=== PATIENT | female | born 1930 | race Caucasian/White ===

== ENCOUNTER 2018-10-22 16:18 | Inpatient (IN) | payer OTHER ==
[~2018-10-22] VITALS: Ht 165.1 cm; Wt 63.5 kg
[~2018-10-22 16:18] MED LIST: ALLOPURINOL 10100 M1 PO; ASPIRIN325 PO; ATENOLOL 100MG100 MG PO; ATENOLOL 50MG T50 M1 PO; CAPOTEN 50MG TA50 MG PO; CAPTOPRIL 25 MG25 M1 PO; CIPRO500 MG PO; COLACE100 MG PO; COLCRYS0.6 MG PO; DUONEB 2.5-0.5 M3 ML INH; GLUCOSE GEL38 GM PO; GLUCOSE1 EACH PO; GLYBURIDE 3 MG M3 M1 PO; GLYBURIDE 5 MG T5 M1 PO; HYDRALAZINE 2525 M1 PO; HYDROCHLOROTHIA25 M2 GT; HYDROCHLOROTHIA25 M2 PO; HYDROCODONE-AP1 EAC6 PO; LASIX 20 MG TAB20 MG PO; LISINOPRIL10 MG PO; LISINOPRIL5 MG PO; LOVENOX40 MG/0.4 SQ; MIRALAX17 GM PO; ONDANSETRON HCL4 M2 PO; OXYBUTYNIN 5 MG5 M2 PO; TENORMIN25 M1 PO; XARELTO10 MG PO; ZPAK PO; [UNRECOGNIZED DRUG - OTHER] PO
[2018-10-22 16:33] VITALS: BP 169/79
[2018-10-22 17:30] LABS: ABSOLUTE EOSINOPHILS 0.2 thou/uL (0.0-0.7); ABSOLUTE LYMPHOCYTES 1.1 thou/uL (0.8-5.3); ABSOLUTE MONOCYTES 0.3 thou/uL (0.0-1.2); BASOPHILS 0.4 %; EOSINOPHILS 2.7 %; HEMATOCRIT 32.2 % (37.0-47.0); HEMOGLOBIN 10.6 gm/dL (12.0-15.0); LYMPHOCYTES 19.7 %; MCH 28.3 pg (26.0-34.0); MCV 85.9 fL (80.0-100.0); MONOCYTES 6.1 %; MPV 8.7 fl. (7.2-11.1); NUCLEATED RBCS 0 /100WBC; PLATELET COUNT* 142 thou/uL (150-400); POLYS 71.1 %; RBC 3.74 mil/uL (4.20-5.00); RDW-CV 14.2 % (10.5-14.5); WBC 5.7 thou/uL (4.0-11.0)
[2018-10-22 17:42] LABS: CALCIUM 8.2 mg/dL (8.5-10.1); POTASSIUM 4.4 mmol/L (3.5-5.1)
[2018-10-22 17:47] LABS: ALBUMIN 2.5 g/dL (3.4-5.0); TOTAL BILIRUBIN 0.3 mg/dL (<0.1-1.0); TOTAL PROTEIN 6.8 g/dL (6.4-8.2)
[2018-10-22 17:54] VITALS: BP 169/79
[2018-10-22 18:17] VITALS: BP 175/72
--- NOTE | 2018-10-22 18:52 | NUR ---
PT ADMITTED WITH NONHEALING WOUNDS. PT REMAINED ALERT AND ORIENTED. LUNGS CLEAR. HERAT RATE REGULAR AND S1-S2. PULSES 2+ IN ALL EXTREMITIES. WOUNDS TO LT AND RT ANKLES, PICTURES TAKEN AND WOUNDS DRESSED. CONSULTS CALLED IN ID AND PODIATRY. RT AC IV WITH VANC AND ROCEPHIN ORDER WITH NS AT 70. PT RESTING IN ROOM. PT DENIES ANY NEEDS AT THIS TIME. PT BP ELEVATED, IV HYDRALAZINE GIVEN ORDERED. WILL CONTINUE TO MONITOR.
[2018-10-22] MEDS ORDERED: NORVASC5 MG PO (19:01)
[2018-10-22] MEDS ORDERED: COREG6.25 MG PO (19:01)
[2018-10-22 22:00] VITALS: BP 162/70
[2018-10-23 04:40] LABS: ABSOLUTE EOSINOPHILS 0.1 thou/uL (0.0-0.7); ABSOLUTE LYMPHOCYTES 1.1 thou/uL (0.8-5.3); ABSOLUTE MONOCYTES 0.3 thou/uL (0.0-1.2); ABSOLUTE NEUTROPHILS 2.9 thou/uL (1.6-8.1); BASOPHILS 0.6 %; EOSINOPHILS 3.2 %; HEMATOCRIT 26.8 % (37.0-47.0); HEMOGLOBIN 8.8 gm/dL (12.0-15.0); LYMPHOCYTES 24.3 %; MCH 28.3 pg (26.0-34.0); MCHC 32.9 g/dL (28.0-37.0); MCV 85.9 fL (80.0-100.0); MPV 8.9 fl. (7.2-11.1); NUCLEATED RBCS 0 /100WBC; PLATELET COUNT* 119 thou/uL (150-400); POLYS 64.9 %; RBC 3.12 mil/uL (4.20-5.00); WBC 4.5 thou/uL (4.0-11.0)
[2018-10-23 04:50] LABS: CALCIUM 7.6 mg/dL (8.5-10.1); CREATININE 1.7 mg/dL (0.6-1.3); POTASSIUM 4.1 mmol/L (3.5-5.1)
--- NOTE | 2018-10-23 05:07 | NUR ---
PATIENT SLEPT WELL DURING THIS SHIFT. PT UP WITH STANDBY ASSIST AND USE OF WALKER TO BATHROOM. PT WITH DRESSINGS ON BOTH FEET; DSGS C/D/I. PT WITH FLUIDS AND ANTIBIOTICS INFUSING PER DR ORDER. PT IS ON ROOM AIR. PT DENIES PAIN/NAUSEA. WILL CONTINUE TO MONITOR.
[2018-10-23 07:20] VITALS: BP 161/61
[2018-10-23 16:00] VITALS: BP 144/64
--- NOTE | 2018-10-23 17:16 | NUR ---
PT REMAINED ALERT AND ORIENTED. PT RESTING IN ROOM. PT DRESSING CHANGED TWICE THIS SHIFT. CULTURES SENT TO LAB. PT DENIES ANY NEEDS AT THIS TIME. FALL RISK PRECAUTIONS IN PLACE. HOURLY ROUNDING COMPLETED. WILL CONTINUE TO MONITOR.
[2018-10-23 20:00] VITALS: BP 140/68
[2018-10-24] VITALS: BP 156/52
[2018-10-24 04:50] LABS: ABSOLUTE EOSINOPHILS 0.2 thou/uL (0.0-0.7); ABSOLUTE LYMPHOCYTES 1.2 thou/uL (0.8-5.3); ABSOLUTE MONOCYTES 0.3 thou/uL (0.0-1.2); ABSOLUTE NEUTROPHILS 2.5 thou/uL (1.6-8.1); BASOPHILS 0.5 %; EOSINOPHILS 3.9 %; HEMATOCRIT 26.9 % (37.0-47.0); HEMOGLOBIN 8.8 gm/dL (12.0-15.0); LYMPHOCYTES 28.1 %; MCH 28.3 pg (26.0-34.0); MCHC 32.6 g/dL (28.0-37.0); MCV 86.7 fL (80.0-100.0); MONOCYTES 6.8 %; NUCLEATED RBCS 0 /100WBC; PLATELET COUNT* 132 thou/uL (150-400); POLYS 60.7 %; RDW-CV 14.5 % (10.5-14.5); WBC 4.2 thou/uL (4.0-11.0)
[2018-10-24 05:08] LABS: CALCIUM 7.5 mg/dL (8.5-10.1); CREATININE 1.7 mg/dL (0.6-1.3); POTASSIUM 3.9 mmol/L (3.5-5.1)
[2018-10-24 08:43] VITALS: BP 173/66
--- NOTE | 2018-10-24 11:36 | CON ---
[address] [address] CONSULTATION Name: CAPRICE BERGER Room: [address] IN .R.#: [id number] Admission: 10/22/18 Attend Phys: Tony Blanchard MD Discharge: Date of : 32 Report #: [id number] THIS REPORT FOR: //name// CC: Tony Blanchard [facility] physician/PCP DATE OF SERVICE: 10/23/2018 INFECTIOUS DISEASES CONSULTATION REASON FOR CONSULTATION: I was asked to evaluate concerning bilateral heel wounds. HISTORY OF PRESENT ILLNESS: The patient is an 87-year-old who presents with bilateral foot wounds, right greater than left. She notes that she had poorly fitting slippers that she bought a while ago. She did not notice these slippers to be cutting into her heels, but this is exactly what happened. Her son came over yesterday and found these wounds and brought her into the Emergency Room. No fever, chills or sweats. She has had no pain. She reports no history of diabetes. She does have underlying hypertension and history of congestive heart failure. REVIEW OF SYSTEMS: A 10-point review of system was negative other than what has been described above. ALLERGIES: None known. MEDICATIONS: As noted on her MAR, now having been started on vancomycin and ceftriaxone. PAST MEDICAL HISTORY: Hypertension, anemia, gout, osteoporosis, diabetes, peripheral edema. FAMILY HISTORY: Noncontributory. SOCIAL HISTORY: Nonsmoker, no significant alcohol intake. PHYSICAL EXAMINATION: VITAL SIGNS: She is afebrile and hemodynamically stable. GENERAL: Alert and cooperative, in no acute distress. EYES: Without scleral icterus. MOUTH: Without mucositis. NECK: Supple. LUNGS: Clear. HEART: Regular, without murmur, gallop or rub. ABDOMEN: Soft and nontender with no hepatosplenomegaly [place] [address] CONSULTATION Name: CAPRICE BERGER Room: [address]#: [id number] Admission: 10/22/18 Attend Phys: Tony Blanchard MD Discharge: Date of : 32 Report #: [id number] tenderness. EXTREMITIES: Pulses in both lower extremities were normal throughout. Sensation was diminished in both feet, mostly distally. She had wounds to both heels posteriorly in a line distribution, right greater than left. Mild surrounding erythema. Mild drainage, mostly on the right. Minimal tenderness. LABORATORY STUDIES: X-ray of the heels showed no evidence of osteomyelitis. Hemoglobin 10.6, white count 5.7, platelet count 142,000. Creatinine 2. Blood cultures are negative to date. IMPRESSION: Bilateral heel wounds from pressure injury. I suspect component of peripheral neuropathy here. She has acute kidney disease, anemia, thrombocytopenia in the setting of hypertension and diabetes. RECOMMENDATIONS: We will continue with ceftriaxone. Await wound culture. Continue wound care, offloading. <ELECTRONICALLY SIGNED> By: Augusto Munoz MD 10/24/18 1136 1609 2059Davaibhav Munoz MD /nt
--- NOTE | 2018-10-24 15:09 | 2DMMODE ---
[place] [address] 2 D/M-MODE ECHOCARDIOGRAM Name: CAPRICE BERGER Room: [address] IN [facility].#: [id number] Admission: 10/22/18 Attend Phys: Tony Blanhcard, Discharge: Date of : 32 Date of Service: 10/24/18 1509 Report #: [id number] THIS REPORT FOR: //name// APPROVED REPORT Study performed: 10/24/2018 14:16:34 EXAM: Comprehensive 2D, Doppler, and color-flow Echocardiogram Patient Location: Bedside BSA: 1.70 HR: 70 bpm BP: 173/66 mmHg Other Information Study Quality: Good Indications Murmur 2D Dimensions IVSd: 10.59 (7-11mm) LVOT Diam: 22.44 (18-24mm) LVDd: 58.17 mm PWd: 8.79 (7-11mm) Ascending Ao: 30.34 (22-36mm) LVDs: 39.67 (25-40mm) Aortic Root: 29.94 mm Volumes Left Atrial Volume (Systole) LA ESV Index: 36.40 mL/m2 Aortic Valve AoV Peak Dg.: 1.88 m/s AO Peak Gr.: 14.17 mmHg LVOT Max P.18 mmHg AO Mean Gr.: 8.10 mmHg LVOT Mean P.44 mmHg LVOT Max V: 0.89 m/s AO V2 VTI: 42.60 cm LVOT Mean V: 0.55 m/s FRANCISCO JAVIER (VTI): 1.93 cm2 LVOT V1 VTI: 20.74 cm Mitral Valve E/A Ratio: 1.18 MV Decel. Time: 211.34 ms MV E Max Dg.: 1.16 m/s MV PHT: 61.29 ms MVA (PHT): 3.59 [place]2 [place] [address] 2 D/M-MODE ECHOCARDIOGRAM Name: CAPRICE BERGER Room: [address] IN [facility]#: [id number] Admission: 10/22/18 Attend Phys: Tony Blanchard, Discharge: Date of : 32 Date of Service: 10/24/18 1509 Report #: [id number] TDI E/Lateral E': 14.50 E/Medial E': 14.50 Medial E' Dg.: 0.08 m/s Lateral E' Dg.: 0.08 m/s Pulmonary Valve PV Peak Dg.: 0.91 m/s PV Peak Gr.: 3.30 mmHg Tricuspid Valve RAP Estimate: 20.00 mmHg TR Peak Gr.: 15.49 mmHg RVSP: 35.49 mmHg PA Pressure: 35.49 mmHg Left Ventricle The left ventricle is normal size. There is normal LV segmental wall motion. There is normal left ventricular wall thickness. Left ventricular systolic function is hyperdynamic. LVEF is 65-70%. Right Ventricle The right ventricle is normal size. The right ventricular systolic function is normal. Atria Left atrium is mildly dilated. The right atrium size is normal. Aortic Valve The Aortic valve is sclerotic. No aortic regurgitation is present. No hemodynamically significant valvular aortic stenosis. Mitral Valve There is mitral annular calcification. Trace mitral regurgitation. No evidence of mitral valve stenosis. Tricuspid Valve The tricuspid valve is normal in structure. Trace tricuspid regurgitation. estimated pa pressure 25 mm Hg Pulmonic Valve The pulmonary valve is normal in structure. There is no pulmonic valvular regurgitation. Great Vessels The aortic root is normal in size[place] [address] 2 D/M-MODE ECHOCARDIOGRAM Name: CAPRICE BERGER Room: [address]#: [id number] Admission: 10/22/18 Attend Phys: Tony Blanchard, Discharge: Date of : 32 Date of Service: 10/24/18 1509 Report #: [id number] Pericardium There is no pericardial effusion. <Conclusion> LVEF is 65-70%. Left atrium is mildly dilated. The Aortic valve is sclerotic. <ELECTRONICALLY SIGNED> By: Jesus Lai MD, [facility] 10/24/18 1509 1509 1509 Jesus Lai MD, [facility] /INF
--- NOTE | 2018-10-24 16:00 | NUR ---
PT.SITTING ON SIDE OF BED. DRESSINGS ON VIELKA.LOWER EXT. SHE SAID SHE HAS NO PAIN. HOPING TO GO HOME SOON. TOLD HER IT PROBABLY WOULD NOT BE TODAY. SHE SAID SHE LIVES WITH HER SON,GRANDSON AND HIS . SON WORKS DURING THE DAY. GRANDSON IS USUALLY THERE DURING THE DAY. HIS IS HOMEIN THE EVENINGS WELL PT.'S SON. SHE USES A WALKER. SHE IS INDEPENDENT WITH BATHEING AND DRESSING. SHE SAID SHE HAS TROUBLE WITH THE 3 ENTRY STEPS IN HER HOUSE. THERE IS NO HANDRAIL,SO SON HAS TO GET ON ONE SIDE AND GRANDSON GETS ON THE OTHER TO HELP HER UP THE STAIRS. WAITNG ON PENDING CULTURES AND TO COME SEE HER. CM WILL FOLLOW.
[2018-10-24 16:30] VITALS: BP 131/78
[2018-10-24 17:35] VITALS: BP 169/62
[2018-10-24 20:25] VITALS: BP 170/66
[2018-10-25 04:08] LABS: CREATININE 1.7 mg/dL (0.6-1.3)
[2018-10-25 04:31] LABS: POTASSIUM 4.9 mmol/L (3.5-5.1)
[2018-10-25 04:33] LABS: ABSOLUTE EOSINOPHILS 0.2 thou/uL (0.0-0.7); ABSOLUTE LYMPHOCYTES 1.2 thou/uL (0.8-5.3); ABSOLUTE MONOCYTES 0.3 thou/uL (0.0-1.2); ABSOLUTE NEUTROPHILS 2.7 thou/uL (1.6-8.1); BASOPHILS 0.5 %; EOSINOPHILS 4.2 %; HEMATOCRIT 27.9 % (37.0-47.0); HEMOGLOBIN 9.3 gm/dL (12.0-15.0); LYMPHOCYTES 26.7 %; MCH 28.6 pg (26.0-34.0); MCHC 33.4 g/dL (28.0-37.0); MCV 85.7 fL (80.0-100.0); MONOCYTES 7.3 %; MPV 8.4 fl. (7.2-11.1); NUCLEATED RBCS 0 /100WBC; PLATELET COUNT* 124 thou/uL (150-400); POLYS 61.3 %; RBC 3.25 mil/uL (4.20-5.00); RDW-CV 14.4 % (10.5-14.5); WBC 4.4 thou/uL (4.0-11.0)
--- NOTE | 2018-10-25 05:37 | NUR ---
PT SLEPT WELL OVERNIGHT WITHOUT COMPLAINTS. AOX4, PLEASANT. RAC SL. HS ACCUCHECK 94, NO INSULIN ORDERS, SNACK GIVEN. DRSG CDI TO VIELKA FEET, ELEVATED ON PILLOW. STRESS INCONTINENCE, UP WITH SBA AND WALKER TO VOID. AM LABS DRAWN. HEART MURMUR HEARD. ID AND PODIATRY CONSULTING. ABLE TO USE CALL LITE AND MAKE NEEDS KNOWN. CALL LITE IN EASY REACH AND BED ALARM ON FOR SAFETY.
[2018-10-25 07:50] VITALS: BP 174/56
[2018-10-25] MEDS ORDERED: FOLIC ACID 1 MG1 MG PO (10:11)
[2018-10-25] MEDS ORDERED: KEFLEX500 M2 PO (11:26)
[2018-10-25 11:28] VITALS: BP 174/56
[2018-10-25 14:17] VITALS: BP 174/56
--- NOTE | 2018-10-25 15:14 | NUR ---
SW met with pt to discuss safe dc planning for pt to dc home today with family and HH services to follow. Pt in agreement with plan and preference for [facility] HH; SW faxed referral and dc orders/med list and [facility] accepted referral. Pt son to provide pt ride home.
[2018-10-25 16:46] VITALS: BP 178/69
--- NOTE | 2018-10-25 18:06 | NUR ---
PATIENT DRESSINGS CHANGED TO VIELKA LE'S THIS AM PER ORDERS AND PHOTOS OBTAINED. PATIENT OK TO DISCHARGE HOME. IV DC'D. PO ABX STARTED AND GIVEN ORDERED. BP ELEVATED THIS SHIFT EVEN AFTER SCHED MEDS, DR. WU MADE AWARE BUT NO NEW ORDERS RECEIVED. VERBALIZES UNDERSTANDING OF PAPERWORK AND SCRIPT. WOUND CENTER APPT MADE. PATIENT TAKEN OUT VIA WHEELCHAIR WITH ALL BELONGINGS.
--- NOTE | 2018-11-02 13:29 | CON ---
[address] [address] CONSULTATION Name: CAPRICE BERGER Room: [address] IN [facility]#: [id number] Admission: 10/22/18 Attend Phys: Tony Blanchard MD Discharge: 10/25/18 Date of : 32 Report #: [id number] THIS REPORT FOR: //name// CC: Tony Blanchard [facility] physician/PCP DATE OF SERVICE: 10/23/2018 ADMISSION DIAGNOSIS: Bilateral posterior ankle wounds with cellulitis. HISTORY OF PRESENT ILLNESS: The patient is an 87-year-old female admitted for cellulitis to the posterior ankles with pressure ulcers from tight shoes. She denies history of fevers, chills, nausea or malaise. Over 1 week ago, she wore some tighter fitting house slippers, which caused pressure wounds horizontally over the distal Achilles tendon. She currently denies pain to both lesions. She is on parenteral vancomycin and ceftriaxone without complication. Blood cultures are pending. Ankle radiographs negative for subcutaneous emphysema or osseous abnormality. LABORATORY DATA: WBC 4.5, RBC 3.12, hemoglobin 8.8, hematocrit 26.8, and platelets 119. BUN 22, creatinine 1.7, and glucose 103. PHYSICAL EXAMINATION: There is a transverse full thickness wound to the right posterior tendo Achilles that measures 3.0 x 0.3 x 0.2 cm. There is pink granulation with a thin film of pale slough. No exposed tendon or bone. Localized inflammation with cellulitis. The area is nontender to the touch. She has palpable dorsalis pedis and posterior tibial pulses to both extremities. She has a much smaller lesion to the same region of the left posterior Achilles that measures 1.0 x 0.2 x 0.1 cm with minimal inflammation and no rosemarie cellulitis. IMPRESSION: Pressure ulcerations to posterior tendo Achilles with cellulitis, bilateral. PLAN: Both wounds were cleansed and dried. I applied silver foam ABDs and Kerlix to both. No formal surgical debridement required to the OR; however, I debrided the wound with scissors and forceps to remove subcutaneous tissue and slough from both. Continue offloading, maximize nutrition. <ELECTRONICALLY SIGNED> By: Augusto Fall DPM 11/02/18 1329 0852 [id number] Fall DPM /nt
== END 2018-10-25 18:09 | disposition home health service (06) | DRG 571 ==
LOC: M.ERS 16:18 → M.ORTHSURG 17:08 → M.TBA-ER 17:08 → M.ORTHSURG 17:50
PROVIDERS: Nurse Practitioner Family; ADMIT Internal Medicine
PROC: 0JBQ0ZZ Excision of Right Foot Subcutaneous Tissue and Fascia, Open Approach (ICD-10-PCS; principal; 2018-10-24)
DX: L03.115 Cellulitis of right lower limb (principal); N17.9 Acute kidney failure, unspecified; R65.10 Systemic inflammatory response syndrome (SIRS) of non-infectious origin without acute organ dysfunction; E44.0 Moderate protein-calorie malnutrition; L89.519 Pressure ulcer of right ankle, unspecified stage; L03.116 Cellulitis of left lower limb; E53.8 Deficiency of other specified B group vitamins; N18.9 Chronic kidney disease, unspecified; D69.6 Thrombocytopenia, unspecified; E11.22 Type 2 diabetes mellitus with diabetic chronic kidney disease; I12.9 Hypertensive chronic kidney disease with stage 1 through stage 4 chronic kidney disease, or unspecified chronic kidney disease; L89.529 Pressure ulcer of left ankle, unspecified stage; M81.0 Age-related osteoporosis without current pathological fracture; M1A.9XX0 Chronic gout, unspecified, without tophus (tophi); Z79.84 Long term (current) use of oral hypoglycemic drugs; Z68.22 Body mass index [BMI] 22.0-22.9, adult

== ENCOUNTER → 2018-11-02 | Outpatient (CLI) | payer OTHER ==
[~2018-11-02] MED LIST changes: +COREG6.25 MG PO; +FOLIC ACID 1 MG1 MG PO; +KEFLEX500 M2 PO; +NORVASC5 MG PO
--- NOTE | 2018-11-03 12:11 | CON ---
[address] [address] CONSULTATION Name: CAPRICE BERGER Room: [facility] DEMI ThackerCindyMaximeCindy#: [id number] Admission: 11/02/18 Attend Phys: Augusto Fall DPM Discharge: Date of : 32 Report #: [id number] THIS REPORT FOR: //name// CC: Augusto Paz DATE OF SERVICE: 11/03/2018 INFECTIOUS DISEASE CONSULTATION ATTENDING PHYSICIAN: Augusto Dunn DPM She is here for followup hospitalization. She had bilateral posterior heel ulcerations. Right was worse than the left. It has been complicated by skin and soft tissue infection with cellulitis. She returns today. Generally, she feels without significant pain, is notable and likely has peripheral neuropathy to a great extent that she admits to. On evaluation, the wound appears to be less superficially inflamed on examination by Dr. Fall and on debridement, there is no exposed tendon at this point. It is notable as a transverse oriented wound across the posterior base of the heel. Skin and soft tissue infection associated with right heel wound. At this point, would continue as prescribed, the cephalexin, until complete. We will plan on seeing her back in 2 weeks. Continue wound care as prescribed and to avoid the ill-fitting shoes that triggered this initial episode. <ELECTRONICALLY SIGNED> By: Kev Florez MD 11/03/18 1211 0907 0958Joshraddha Florez MD /marla
== END ==
LOC: M.WC 04:57
DX: E11.621 Type 2 diabetes mellitus with foot ulcer (principal); L89.612 Pressure ulcer of right heel, stage 2; L97.412 Non-pressure chronic ulcer of right heel and midfoot with fat layer exposed; L89.893 Pressure ulcer of other site, stage 3; I11.0 Hypertensive heart disease with heart failure; I50.9 Heart failure, unspecified; Z96.649 Presence of unspecified artificial hip joint

== ENCOUNTER → 2018-11-09 | Outpatient (CLI) | payer OTHER ==
--- NOTE | 2018-11-11 07:44 | CON ---
[address] [address] CONSULTATION Name: CAPRICE BERGER Room: [facility] Ever.#: [id number] Admission: 11/09/18 Attend Phys: Augusto Fall DPM Discharge: Date of : 32 Report #: [id number] THIS REPORT FOR: //name// CC: Augusto Paz DATE OF SERVICE: 11/09/2018 INFECTIOUS DISEASE CONSULTATION FOLLOWUP ATTENDING PHYSICIAN: Augusto Fall DPM HISTORY OF PRESENT ILLNESS: She is here for followup bilateral heel ulcerations, primarily right at this point. There is very little pain associated with them, which is in distinction with her initial presentation. Denies any significant systemic illness. It is notable that she has been walking around barefoot per nurse and had an odor of urine. On evaluation with Dr. Fall, the transverse oriented wounds continue to be jay jay. There is very little inflammation associated with them. He did debride the site. Granulation tissue appears to be reasonably good. There is no exposed tendon. ASSESSMENT AND PLAN: Right posterior heel ulceration complicated by skin and soft tissue infection. At this point, she has got a few remaining cephalexin. She was told to complete that course and that would be the extent of it. We will continue wound care as per Dr. Fall. She was encouraged to wear shoes or otherwise other footwear to protect her feet in general if there is any direct pressure on the site with walking. Continue dressing changes. We will see her back in 2 weeks. <ELECTRONICALLY SIGNED> By: Kev Florez MD 11/11/18 0744 0855 1958Joshraddha Florez MD /nt
--- NOTE | 2018-11-14 15:06 | PATH ---
[address] [address] PATHOLOGY RPT PROCEDURE Name: GREGGJORDONCAPRICE DONAVAN Room: [facility] Mj#: [id number] Admission: 11/09/18 Date of : 32 Discharge: Report #: [id number] Path Case #: [id number] LCA Accession Number: [id number] . 01 Material submitted: . foot - BIOPSY LEFT FOOT. Modifiers: left . 01 Clinician provided ICD-10: D21.2 . 02 Diagnosis: Skin, left foot, shave biopsy: - Blue nevus; involving all biopsy margins. There is no evidence of malignancy within the sections examined. (MED:heraclio; 11/14/2018) MBR 11/14/2018 1122 Local . 02 Electronically signed: . Norma Bradshaw MD, Pathologist NPI- [id number] . 01 Gross description: . The specimen is received in formalin, labeled "Caprice Jeffries, biopsy L foot". Received is a shave biopsy measuring 0.8 x 0.5 x 0.1 cm in greatest dimensions. The epidermal surface displays a well-circumscribed, slightly raised and brown-black lesion measuring 0.8 x 0.5 cm. The surgical margin is inked. The specimen is bisected and entirely submitted in cassette A1. (CAA; 11/10/2018) QA/QA 11/10/2018 0951 Local . 02 Pathologist provided ICD-10: D23.72 . 02 CPT . 165123 Specimen Comment: A courtesy copy of this report has been sent to Specimen Comment: [phone], . Specimen Comment: Report sent to / DR CONWAY Performed at: 01 [facility] [address] [place] [address] [address], [place] [id number] MD Mehul Yarbrough MD Phone: [phone] Performed at: 02 [facility] [address] [id number] MD Norma Bradshaw MD Phone: [phone]
== END ==
LOC: M.WC 04:59
DX: E11.621 Type 2 diabetes mellitus with foot ulcer (principal); L89.612 Pressure ulcer of right heel, stage 2; L97.412 Non-pressure chronic ulcer of right heel and midfoot with fat layer exposed; L89.893 Pressure ulcer of other site, stage 3; L03.115 Cellulitis of right lower limb; L84 Corns and callosities; I11.0 Hypertensive heart disease with heart failure; I50.9 Heart failure, unspecified

== ENCOUNTER → 2018-11-23 | Outpatient (CLI) | payer OTHER | LOC: M.WC 11-16 14:00 | DX: E11.621 Type 2 diabetes mellitus with foot ulcer (principal); L89.612 Pressure ulcer of right heel, stage 2; L97.412 Non-pressure chronic ulcer of right heel and midfoot with fat layer exposed; L03.115 Cellulitis of right lower limb; I11.0 Hypertensive heart disease with heart failure; I50.9 Heart failure, unspecified ==

== ENCOUNTER 2019-01-16 16:44 | Inpatient (IN) | payer OTHER ==
[~2019-01-16] VITALS: Ht 160 cm; Wt 56.7 kg
[~2019-01-16 16:44] MED LIST changes: -FOLIC ACID 1 MG1 MG PO; +FOLIC ACID1 MG PO
[2019-01-16 16:53] VITALS: BP 214/90
[2019-01-16 17:25] LABS: ABSOLUTE BASOPHILS 0.1 thou/uL (0.0-0.2); ABSOLUTE EOSINOPHILS 0.1 thou/uL (0.0-0.7); ABSOLUTE LYMPHOCYTES 1.2 thou/uL (0.8-5.3); ABSOLUTE MONOCYTES 0.4 thou/uL (0.0-1.2); ABSOLUTE NEUTROPHILS 6.7 thou/uL (1.6-8.1); BASOPHILS 1.2 %; EOSINOPHILS 1.7 %; HEMATOCRIT 29.9 % (37.0-47.0); HEMOGLOBIN 10.1 gm/dL (12.0-15.0); LYMPHOCYTES 13.7 %; MCH 28.3 pg (26.0-34.0); MCHC 33.8 g/dL (28.0-37.0); MCV 83.8 fL (80.0-100.0); MPV 8.2 fl. (7.2-11.1); NUCLEATED RBCS 0 /100WBC; PLATELET COUNT* 183 thou/uL (150-400); POLYS 78.4 %; RBC 3.57 mil/uL (4.20-5.00); RDW-CV 15.5 % (10.5-14.5); WBC 8.6 thou/uL (4.0-11.0)
[2019-01-16 17:33] LABS: CALCIUM 7.6 mg/dL (8.5-10.1); CREATININE 1.7 mg/dL (0.6-1.3); POTASSIUM 4.5 mmol/L (3.5-5.1)
[2019-01-16 17:38] LABS: ALBUMIN 1.5 g/dL (3.4-5.0); TOTAL BILIRUBIN 0.2 mg/dL (<0.1-1.0); TOTAL PROTEIN 6.1 g/dL (6.4-8.2)
[2019-01-16 18:10] LABS: URINE BILIRUBIN NEGATIVE (Negative); URINE BLOOD TRACE (Negative); URINE CLARITY CLOUDY; URINE COLOR YELLOW; URINE GLUCOSE-RANDOM NEGATIVE (Negative); URINE KETONES NEGATIVE (Negative); URINE LEUKOCYTES-REFLEX TRACE (Negative); URINE NITRITE-REFLEX NEGATIVE (Negative); URINE PROTEIN 3+ (Negative)
[2019-01-16 18:18] LABS: BACTERIA-REFLEX >30 Many /HPF (None Seen); MUCUS None Seen strn/LPF (None Seen); SQUAMOUS 4-10 Moderate /LPF (0-3)
[2019-01-16 18:19] LABS: HYALINE CASTS 0-3 Few /LPF (None Seen)
[2019-01-16 18:20] LABS: CRYSTALS None Seen /LPF (None Seen); URINE RBC 0-2 Rare /HPF (0-2); WBC CLUMPS Few (None Seen)
[2019-01-16 19:00] LABS: BE -0.8 mmol/L (-2 to +3); PCO2 29.9 mmHg (35.0-45.0); PO2 75.8 mmHg (75.0-100.0); pH 7.483 (7.340-7.450)
[2019-01-16 19:33] VITALS: BP 179/61
[2019-01-17] VITALS: BP 150/74
[2019-01-17 04:00] VITALS: BP 159/79
[2019-01-17 04:14] LABS: CALCIUM 7.4 mg/dL (8.5-10.1); CREATININE 1.5 mg/dL (0.6-1.3); MAGNESIUM 1.7 mg/dL (1.8-2.4); POTASSIUM 3.8 mmol/L (3.5-5.1)
--- NOTE | 2019-01-17 06:42 | NUR ---
RECEIVED REPORT FROM SYSTEMS INTEGRATION ENGINEER ELDA AT 1930. PT ARRIVED TO UNIT AT 1945. NURSING ASSESSMENT COMPLETED. STITCH BURNISHER IN PLACE, TRACING SA 1D WITH PACS/PVCS/ SR 1D PACS. PT AAOX4, ORIENTED TO ROOM AND CALL LIGHT. Q2H REPOSITIONING IN PLACE AND COMPLETED. HIGH FALL PRECAUTIONS IN PLACE. NIH ASSESSMENT COMPLETED. SCORE 2. HOURLY ROUNDING COMPLETED. CALL LIGHT WITHIN REACH.
[2019-01-17 07:40] VITALS: BP 172/60
--- NOTE | 2019-01-17 09:32 | EKG ---
[place] [address] ELECTROCARDIOGRAM REPORT Name: CAPRICE BERGER Room: [address] ADM IN .R.#: [id number] Admission: 01/16/19 Attend Phys: Wicho Olivia MD Discharge: Date of : 32 Report #: [id number] THIS REPORT FOR: //name// [facility] ED Test Date: 2019-01-16 Test Time: 17:24:44 Pat Name: CAPRICE BERGER Department: Room: [facility] Gender: F Dredge Deckhand: : 1930 Requested By: Yehuda Mercedes Order Number: [id number] MD: Hira Azevedo Measurements Intervals Stanton Rate: 81 P: 36 IN: 174 QRS: -8 QRSD: 90 T: 21 QT: 376 QTc: 437 Interpretive Statements Sinus rhythm Atrial premature complexes Inferior infarct, old Anterior infarct, old Compared to ECG 05/28/2016 16:02:17 Atrial premature complex(es) now present Myocardial infarct finding now present Short IN interval no longer present Left ventricular hypertrophy no longer present Electronically Signed On 01-17-2019 9:32:06 APPLIANCE FIXER by Hira Azevedo [email or web address] <ELECTRONICALLY SIGNED> By: Hira Azevedo MD, FACC 01/17/19 0932 1724 1724 Hira Azevedo MD, FACC /EPI
[2019-01-17 11:30] VITALS: BP 185/69
--- NOTE | 2019-01-17 14:03 | NUR ---
CM attempted x2 to assess Pt, will f/u later
--- NOTE | 2019-01-17 14:55 | NUR ---
ASSUMED PT CARE AT 0800, AOX4, UP WITH ASSIST, O2 SAT 90'S RA. TRACING SINUS RHYTHM ON TELE. PT DENIES PAIN. NIH SCORE 2. PT HAD NEUROLOGY CONSULT. PT HAD MRI. VSS, AM ASSESSMENT CHARTED. MEDS GIVEN PER MAR. CALL LIGHT WITHIN REACH, WILL CONTINUE TO MONITOR.
--- NOTE | 2019-01-17 15:07 | NUR ---
Pt is A&O. Resides at home with her son, DIL and grandson. Pt states that she is independent, but family is available if needed. Pt mainly uses a walker for mobility, but also has a cane and wc at home. Pt has a commode. Hx of [facility] HH. Hx of SNF, but does not remember which facility. Pt's goal is to return home at dc, therapies to eval. Following.
[2019-01-17 16:03] VITALS: BP 159/85
[2019-01-17 19:40] VITALS: BP 136/64
[2019-01-18] VITALS (7 sets, daily range): BP systolic 142–181; BP diastolic 58–76
--- NOTE | 2019-01-18 04:47 | NUR ---
PT CARE ASSUMED AT 1930. SAT MAINTAINED IN RA. ALERT AND ORIENTED X4. INCONTINENT OF BOWEL AND BLADDER. CALL LIGHT WITHIN REACH AND BED IN LOW POSITION. DENIES PAIN AND SOB. HOURLY ROUNDING DONE FOR PT SAFETY.
--- NOTE | 2019-01-18 13:52 | NUR ---
Cm discussed dispo with Pt, Pt plans to discuss SNF with her son this evening. Pt stated that if she does go skilled, she would want to go to either [facility] [place] or [facility], [place]. CM to f/u first thing in the morning.
[2019-01-19] VITALS: BP 133/62
[2019-01-19 04:00] VITALS: BP 178/70
[2019-01-19 04:56] LABS: CALCIUM 7.3 mg/dL (8.5-10.1); CREATININE 1.8 mg/dL (0.6-1.3); MAGNESIUM 1.7 mg/dL (1.8-2.4); POTASSIUM 4.2 mmol/L (3.5-5.1)
[2019-01-19 07:00] VITALS: BP 149/78
--- NOTE | 2019-01-19 07:38 | NUR ---
PT CARE ASSUMED AT 1930. SAT MAINTAINED IN RA. ALERT AND ORIENTED X4. CALL LIGHT WITHIN REACH AND BED IN LOW POSITION. DENIES PAIN AND SOB. LFT LEG WEAKNESS PRESENT. INCONTINENT OF BOWEL AND BLADDER. HOURLY ROUNDING DONE FOR PT SAFETY.
--- NOTE | 2019-01-19 07:53 | NUR ---
INITAL ASSESSMENT COMPLETED CHARTED. VSS. TRACING SA WITH PVC'S ON MONITOR. PT C/O LEFT HIP PAIN. PT DENIES CP, SOA, N/V/D. NO OTHER CONCERNS AT THIS TIME. HOURLY ROUNDING AND FALL PRECAUTIONS IN PLACE FOR PT SAFETY. CLWR.
[2019-01-19] MEDS ORDERED: ROBITUSSIN100 MG/53 PO (09:17)
[2019-01-19] MEDS ORDERED: MULTIVITAMINS1 EAC7 PO (09:17)
[2019-01-19] MEDS ORDERED: AZITHROMYCIN 2250 MG PO (09:17)
[2019-01-19] MEDS ORDERED: CEFDINIR300 MG PO (09:17)
[2019-01-19] MEDS ORDERED: VITAMIN D1000 UNI2 PO (09:19)
--- NOTE | 2019-01-19 09:41 | NUR ---
CM spoke with Pt regarding skilled, Pt and son are in agreement and want [facility]. Spoke with Bridgette at [facility], they will have a skilled bed tomorrow. Faxed referral and asked that they initiate insurance auth, if they are able to accept Pt for a plan dc tomorrow.
[2019-01-19 12:02] VITALS: BP 180/66
[2019-01-19 16:05] VITALS: BP 170/79
--- NOTE | 2019-01-19 18:57 | CON ---
[address] [address] CONSULTATION Name: CAPRICE BERGER Room: [address] IN M.R.#: [id number] Admission: 01/16/19 Attend Phys: Wicho Olivia MD Discharge: Date of : 32 Report #: [id number] THIS REPORT FOR: //name// CC: Wicho Paz DATE OF SERVICE: 01/17/2019 HISTORY OF PRESENT ILLNESS: This is an 88-year-old female patient who was seen by me for what she described as weakness on the left side. She said yesterday morning her left leg got weak. She indicates that she lives with her family, but usually she is independent and able to do all her daily activities. She said yesterday her family has to help her because she was weak on the left side. I asked her about the confusion, she does not believe she is confused. It was yesterday. This is a different history than she has provided to other providers. She does not think anything makes it better or worse. This started spontaneously without any trauma. No family member is here to confirm the history, but she indicates it happened yesterday. Again, as I said, the history is different than she provided to other people. REVIEW OF SYSTEMS: Indicates that she said she has some heart issues in the past. She does not know what it was. She has a history of osteoporosis, diabetes, gout, anemia, hypertension as I understand from her. Her GFR is low here. A 14-point review of systems was carried out. She is complaining of this weakness, but is not complaining of any new eye, ENT, cardiac, respiratory, , constitutional, dermatological, hematological, psychiatric, throat, allergic symptom associated with present symptomatology. She does have some nonspecific GI symptoms. PAST MEDICAL HISTORY: Positive for some heart issues. FAMILY HISTORY: Negative for any early age stroke. SOCIAL HISTORY: She indicates she does not drink any alcohol or smoke. PHYSICAL EXAMINATION: VITAL SIGNS: Blood pressure is 172/60, respirations 19, pulse is 62, and temperature is 97.9. NEUROLOGIC: The patient's examination indicates she is alert, responsive. She can tell me the month. She knows what hospital it is. She could not name the president, but she knew who he is. Her speech looks intact. Cranial nerve examination 2-12 looks unremarkable. She is weak in both lower extremities, but much more on the left side as compared to the right side. I do not know what her baseline is. I did the position sense. Sometime [place] [address] CONSULTATION Name: CAPRICE BERGER DONAVAN Room: [address] IN .R.#: [id number] Admission: 01/16/19 Attend Phys: Wicho Olivia MD Discharge: Date of : 32 Report #: [id number] she did not do okay. For reflexes and tone, she did not relax. There does not appear to be any cerebellar sign. There is no papilledema. HEENT: She is moderately built individual who does not have any dysmorphic features of eyes, ears and face. His vision and hearing looks adequate. Pulses are palpable. NECK: She does not have any thyroid mass or meningeal sign. CARDIAC: Appear unremarkable. LUNGS: No respiratory difficulty was noticed. LABORATORY DATA: Indicates a white count of 8.6, GFR of 33. CT scan was reviewed that showed chronic changes, but no acute changes. IMPRESSION: Difficult to form in this patient because the history is not very clear. I think we should exclude the possibility of a stroke on the right side in the anterior cerebral artery distribution or subcortical which can cause weakness on the left side, but she appeared to be weak on both sides and because of that, I will try to exclude a spine pathology. She does have multiple problems including renal problems and had an episode of confusion and memory issues. Because of that, TSH and vitamin B12 was checked and they were unremarkable. We will see how she does with PT, OT today and she already got an aspirin. We will follow this patient along with you. Thank you very much for this referral. <ELECTRONICALLY SIGNED> By: Lewis Galvan MD 01/19/19 1857 0817 0856Lewis Galvan MD /nt
[2019-01-19 20:00] VITALS: BP 147/88
[2019-01-20] VITALS: BP 166/73
[2019-01-20 04:00] VITALS: BP 187/85
[2019-01-20 08:00] VITALS: BP 173/71
[2019-01-20] MEDS ORDERED: TRAMADOL 50 MG50 MG PO (10:40)
[2019-01-20 11:40] VITALS: BP 178/58
[2019-01-20 15:18] VITALS: BP 178/58
== END 2019-01-20 18:00 | DRG 193 ==
LOC: M.ERS 16:44 → M.2W 18:13 → M.TBA-ER 18:13 → M.2W 19:34
PROVIDERS: Emergency Medicine Emergency Medical Services; ADMIT Internal Medicine
DX: J18.9 Pneumonia, unspecified organism (principal); G92 Toxic encephalopathy; E43 Unspecified severe protein-calorie malnutrition; N18.4 Chronic kidney disease, stage 4 (severe); M48.56XA Collapsed vertebra, not elsewhere classified, lumbar region, initial encounter for fracture; N30.91 Cystitis, unspecified with hematuria; M10.9 Gout, unspecified; M81.0 Age-related osteoporosis without current pathological fracture; E11.22 Type 2 diabetes mellitus with diabetic chronic kidney disease; I16.0 Hypertensive urgency; I12.9 Hypertensive chronic kidney disease with stage 1 through stage 4 chronic kidney disease, or unspecified chronic kidney disease; F03.90 Unspecified dementia, unspecified severity, without behavioral disturbance, psychotic disturbance, mood disturbance, and anxiety; T38.0X5A Adverse effect of glucocorticoids and synthetic analogues, initial encounter; E11.65 Type 2 diabetes mellitus with hyperglycemia; M35.9 Systemic involvement of connective tissue, unspecified; B96.20 Unspecified Escherichia coli [E. coli] as the cause of diseases classified elsewhere; Z79.82 Long term (current) use of aspirin; Z79.899 Other long term (current) drug therapy; Y92.89 Other specified places as the place of occurrence of the external cause

== ENCOUNTER 2019-09-07 17:37 | Inpatient (IN) | payer OTHER ==
[~2019-09-07] VITALS: Ht 165.1 cm; Wt 58.5 kg
[~2019-09-07 17:37] MED LIST changes: +AZITHROMYCIN 2250 MG PO; +CEFDINIR300 MG PO; +MULTIVITAMINS1 EAC7 PO; +ROBITUSSIN100 MG/53 PO; +TRAMADOL 50 MG50 MG PO; +VITAMIN D1000 UNI2 PO
[2019-09-07 17:45] VITALS: BP 206/97
[2019-09-07] MEDS ORDERED: FOSAMAX 70 MG T70 MG PO (17:54)
[2019-09-07 18:10] LABS: ABSOLUTE EOSINOPHILS 0.1 thou/uL (0.0-0.7); ABSOLUTE LYMPHOCYTES 0.7 thou/uL (0.8-5.3); ABSOLUTE MONOCYTES 0.4 thou/uL (0.0-1.2); ABSOLUTE NEUTROPHILS 5.4 thou/uL (1.6-8.1); BASOPHILS 0.6 %; EOSINOPHILS 0.8 %; HEMATOCRIT 31.6 % (37.0-47.0); HEMOGLOBIN 10.8 gm/dL (12.0-15.0); LYMPHOCYTES 10.9 %; MCH 29.6 pg (26.0-34.0); MCHC 34.3 g/dL (28.0-37.0); MCV 86.4 fL (80.0-100.0); MONOCYTES 5.9 %; MPV 8.2 fl. (7.2-11.1); NUCLEATED RBCS 0 /100WBC; PLATELET COUNT* 134 thou/uL (150-400); POLYS 81.8 %; RBC 3.66 mil/uL (4.20-5.00); WBC 6.6 thou/uL (4.0-11.0)
[2019-09-07 18:20] LABS: CALCIUM 7.3 mg/dL (8.5-10.1); CREATININE 1.8 mg/dL (0.6-1.3); POTASSIUM 3.5 mmol/L (3.5-5.1)
[2019-09-07 18:21] LABS: APTT 27.9 Seconds (25.0-31.3); INR 1.2
[2019-09-07 18:31] LABS: ALBUMIN 1.8 g/dL (3.4-5.0); TOTAL BILIRUBIN 0.7 mg/dL (<0.1-1.0)
[2019-09-07 18:39] LABS: URINE BILIRUBIN NEGATIVE (Negative); URINE BLOOD 1+ (Negative); URINE CLARITY CLOUDY; URINE COLOR YELLOW; URINE GLUCOSE-RANDOM NEGATIVE (Negative); URINE KETONES NEGATIVE (Negative); URINE LEUKOCYTES-REFLEX TRACE (Negative); URINE PROTEIN 3+ (Negative); URINE SPECIFIC GRAVITY >= 1.030 (1.005-1.030); URINE UROBILINOGEN 0.2 E.U./dl (0.2-1.0)
[2019-09-07 18:48] LABS: URINE NITRITE-REFLEX POSITIVE (Negative)
[2019-09-07 19:16] LABS: AMORPHOUS URATES Moderate /LPF (None Seen); BACTERIA-REFLEX >30 Many /HPF (None Seen); CASTS None Seen /LPF (None Seen); MUCUS 0-3 Light strn/LPF (None Seen); SQUAMOUS 4-10 Moderate /LPF (0-3); URINE RBC 3-10 Few /HPF (0-2)
[2019-09-07 20:36] VITALS: BP 175/70
[2019-09-07 21:00] VITALS: BP 195/98
[2019-09-07 23:20] VITALS: BP 170/78
[2019-09-08 00:59] VITALS: BP 145/61
[2019-09-08 03:06] LABS: URINE BILIRUBIN NEGATIVE (Negative); URINE BLOOD NEGATIVE (Negative); URINE CLARITY CLEAR; URINE COLOR YELLOW; URINE GLUCOSE-RANDOM NEGATIVE (Negative); URINE KETONES NEGATIVE (Negative); URINE LEUKOCYTES-REFLEX TRACE (Negative); URINE NITRITE-REFLEX NEGATIVE (Negative); URINE PROTEIN 3+ (Negative); URINE SPECIFIC GRAVITY 1.025 (1.005-1.030); URINE UROBILINOGEN 0.2 E.U./dl (0.2-1.0)
[2019-09-08 03:21] LABS: BACTERIA-REFLEX >30 Many /HPF (None Seen); CELLULAR CASTS 0-3 Few /LPF (None Seen); COARSE GRANULAR CASTS 0-3 Few /LPF (None Seen); CRYSTALS None Seen /LPF (None Seen); FINE GRANULAR CASTS 0-3 Few /LPF (None Seen); HYALINE CASTS 0-3 Few /LPF (None Seen); MUCUS 4-6 Moderate strn/LPF (None Seen); RENAL EPITHELIAL CELLS 0-3 Few /LPF (None Seen); SQUAMOUS 0-3 Few /LPF (0-3); URINE RBC 3-10 Few /HPF (0-2); URINE WBC-REFLEX >25 Many /HPF (0-5); WBC CLUMPS Moderate (None Seen)
[2019-09-08 04:10] VITALS: BP 148/65
--- NOTE | 2019-09-08 05:17 | NUR ---
PATIENT PROGRESSING TOWARDS GOALS: BLOOD PRESSURE IMPROVED AFTER ADMINISTRATIN OF MEDICATION. PATIENT DENIES PAIN AND DISCOMFORT. RESTING QUIETLY THIS SHIFT WITHOUT COMPLAINTS. CALL LIGHT WITHIN REACH
[2019-09-08 08:00] VITALS: BP 175/85
--- NOTE | 2019-09-08 08:30 | NUR ---
PT.IN BED EATING BREAKFAST. SAID SHE LIVES [place] HER [place] AND HIS . THEY WORK SHE SAID BUT HER SON AND DAUGHTER IN LAW LIVE THERE TOO, SO SOMEONE IS ALWAYS HOME. SHE HAS A WALKER AND WC. ONLY USES WC WHEN OUT IN COMMUNITY. NO HX OF HH. SHE SAID SHE SLEEPS IN A RECLINER IN THE LIVING ROOM. SHE CHOSES TO SLEEP THERE BECAUSE IT IS MORE COMFORTABLE. CM WILL FOLLOW.
[2019-09-08 11:30] VITALS: BP 168/67
--- NOTE | 2019-09-08 12:48 | NUR ---
ASSUMED PT CARE AT 0730, PT RESTING IN BED, AOX4 BUT SOMEWHAT FORGETFUL AND HAS NO C/O PAIN OR SHORTNESS OF BREATH. PT UP W/ 1 AND A WALKER, WEAK. PT NOTED TO HAVE 1+ EDEMA TO BILAT ANKLES/CALVES. PT GOAL IS TO REMAIN FREE FROM SKIN BREAKDOWN AND REMAIN FREE FROM FALLS. AM ASSESSMENT CHARTED, MEDS PER MAR, HOURLY ROUNDING OBSERVED, FALL PRECAUTIONS IN PLACE, CALL LIGHT W/IN REACH, WILL CONTINUE POC.
--- NOTE | 2019-09-08 13:11 | 2DMMODE ---
[place] [address] 2 D/M-MODE ECHOCARDIOGRAM Name: CAPRICE BERGER DONAVAN Room: [address] IN [facility]#: [id number] Admission: 09/07/19 Attend Phys: Kalpesh jauregui Sa Discharge: Date of : 34 Date of Service: 09/08/19 1311 Report #: [id number] THIS REPORT FOR: cc: Alfredo Paz Mohammad K. DO Holkins, John M. MD [facility] ~ APPROVED REPORT Study performed: 09/08/2019 10:08:49 EXAM: Comprehensive 2D, Doppler, and color-flow Echocardiogram Patient Location: In-Patient Room #: [facility] Status: routine BSA: 1.59 HR: 71 bpm BP: 175/85 mmHg Rhythm: NSR Other Information Study Quality: Good Indications Dyspnea 2D Dimensions IVSd: 12.93 (7-11mm) LVOT Diam: 21.01 (18-24mm) LVDd: 51.83 mm PWd: 11.06 (7-11mm) Ascending Ao: 32.77 (22-36mm) LVDs: 39.38 (25-40mm) Aortic Root: 31.67 mm Volumes Left Atrial Volume (Systole) LA ESV Index: 64.50 mL/m2 Aortic Valve AoV Peak Dg.: 2.07 m/s AO Peak Gr.: 17.07 mmHg LVOT Max P.76 mmHg AO Mean Gr.: 10.53 mmHg LVOT Mean P.35 mmHg LVOT Max V: 0.83 m/s AO V2 VTI: 49.16 cm LVOT Mean V: 0.54 m/s FRANCISCO JAVIER (VTI): 1.28 cm2 LVOT V1 VTI: 18.17 [place] [address] 2 D/M-MODE ECHOCARDIOGRAM Name: CAPRICE BERGER Room: [address] IN .R.#: [id number] Admission: 09/07/19 Attend Phys: Kalpesh jauregui Sa Discharge: Date of : 34 Date of Service: 09/08/19 1311 Report #: [id number] Mitral Valve E/A Ratio: 1.01 MV Decel. Time: 209.27 ms MV E Max Dg.: 1.10 m/s MV PHT: 60.69 ms MVA (PHT): 3.63 cm2 TDI E/Lateral E': 13.75 E/Medial E': 18.33 Medial E' Dg.: 0.06 m/s Lateral E' Dg.: 0.08 m/s Pulmonary Valve PV Peak Dg.: 0.83 m/s PV Peak Gr.: 2.74 mmHg Left Ventricle The left ventricle is normal size. There is normal LV segmental wall motion. Mild concentric left ventricular hypertrophy. Left ventricular systolic function is normal. The left ventricular ejection fraction is within the normal range. LVEF is 55-60%. The left ventricular diastolic function is normal. Right Ventricle The right ventricle is normal size. The right ventricular systolic function is normal. Atria Left atrium is moderately dilated. The right atrium size is normal. Aortic Valve Moderate aortic valve sclerosis. No aortic regurgitation is present. Mild aortic stenosis. Mitral Valve There is mitral annular calcification. Mild mitral regurgitation. No evidence of mitral valve stenosis. Tricuspid Valve The tricuspid valve is normal in structure. Unable to assess PA pressure. Trace tricuspid regurgitation. Pulmonic Valve The pulmonary valve is normal in structure. There is no pulmonic [place] [address] 2 D/M-MODE ECHOCARDIOGRAM Name: CAPRICE BERGER DONAVAN Room: [address] IN [facility]#: [id number] Admission: 09/07/19 Attend Phys: Kalpesh jauregui Sa Discharge: Date of : 34 Date of Service: 09/08/19 1311 Report #: [id number] Great Vessels The aortic root is normal in size. IVC is normal in size and collapses >50% with inspiration. Pericardium There is no pericardial effusion. <Conclusion> The left ventricle is normal size. Mild concentric left ventricular hypertrophy. Left ventricular systolic function is normal. The left ventricular ejection fraction is within the normal range. LVEF is 55-60%. The right ventricle is normal size. Left atrium is moderately dilated. The right atrium size is normal. Moderate aortic valve sclerosis. No aortic regurgitation is present. Mild aortic stenosis. There is mitral annular calcification. Mild mitral regurgitation. No evidence of mitral valve stenosis. The tricuspid valve is normal in structure. IVC is normal in size and collapses >50% with inspiration. There is no pericardial effusion. There is normal LV segmental wall motion. <ELECTRONICALLY SIGNED> By: Angus Peralta MD, FACC 09/08/19 131 10 10 Angus Peralta MD, FACC /INF
--- NOTE | 2019-09-08 13:23 | EKG ---
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1930 Requested By: Zane Guzman Order Number: [id number] MD: Angus Peralta Measurements Intervals [place] Rate: 103 P: 83 WI: 180 QRS: 12 QRSD: 92 T: 22 QT: 337 QTc: 441 Interpretive Statements Sinus tachycardia Atrial premature complexes Inferior infarct, old Compared to ECG 01/16/2019 17:24:44 Sinus rate has increased Myocardial infarct finding still present Electronically Signed On 09-08-2019 13:23:31 CDT by Angus Peralta [email or web address] <ELECTRONICALLY SIGNED> By: Angus Peralta MD, [facility] 09/08/19 1323 1748 1748 Angus Peralta MD, [facility] /EPI
[2019-09-08 16:00] VITALS: BP 173/65
--- NOTE | 2019-09-08 18:03 | NUR ---
NO ACUTE CHANGES THROUGHOUT SHIFT, PT HAD NO C/O PAIN OR SHORTNESS OF BREATH THROUGHOUT SHIFT. PT REPOSITIONS SELF WELL AND WORKED W/ OT TO INCREASE ACTIVITY. MEDS PER MAR, HOURLY ROUNDING OBSERVED, FALL PRECAUTIONS IN PLACE, CALL LIGHT W/IN REACH, WILL CONTINUE POC.
[2019-09-08 20:00] VITALS: BP 175/74
[2019-09-09] VITALS (7 sets, daily range): BP systolic 100–188; BP diastolic 56–76
--- NOTE | 2019-09-09 01:01 | NUR ---
PT ALERT ORIENTED. MED/SURG STATUS. ON RA. DENIES PAIN. WCTM.
--- NOTE | 2019-09-09 09:57 | NUR ---
ASSUMED PT CARE AT 0730, PT RESTING IN BED, AOX4 BUT SOMETIMES FORGETFUL AND HAS NO C/O PAIN OR SHORTNESS OF BREATH. PT BP ELEVATED THIS MORNING 187/76, HEART RATE 69 TREATED W/ SCHEDULED COREG. NEW BP MED ORDERED BY DR KNIGHT TO ALSO TREAT BP. UPON REASSESSMENT OF BP IT WAS 155/56 HEART RATE 64, GAVE HYDROCHOLOROTHIAZIDE. PT GOAL IS TO KEEP BP UNDER CONTROL AND REMAIN FREE FROM SKIN BREAKDOWN. AM ASSESSMENT CHARTED, MEDS PER APR, HOURLY ROUNDING OBSERVED, FALL PRECAUTIONS IN PLACE, CALL LIGHT W/IN REACH, WILL CONTINUE POC.
--- NOTE | 2019-09-09 17:06 | NUR ---
NO ACUTE CHANGES THROUGHOUT SHIFT, PT HAD C/O PAIN IN RT FOOT THIS AFTERNOON TREATED W/ PRN NORCO W/ NO RELIEF. WE TRIED TO REPOSITION FOOT/LEG, DISTRACTION, A QUIET, DARK ENVIRONMENT, COMFORT FOOD W/ NO RELIEF. DR NOTIFIED AND ORDERS RECEIVED TO USE A HEATING PAD AND GIVE AN EXTRA DOSE OF GABAPENTIN. GABAPENTIN GIVEN AND CURRENTLY AWAITING ARRIVAL OF PUMP FOR HEATING PAD FROM HOUSE [facility]. DAUGHTER CURRENTLY IN ROOM AND UPDATED ON POC. TOES TO RT FOOT ARE STILL WARM AND CAP REFILL RIGHT AT 3 SECONDS. MEDS PER APR, HOURLY ROUNDING OBSERVED, FALL PRECAUTIONS IN PLACE, PT GOT UP TO COMODE TODAY, CALL LIGHT W/IN REACH, WILL CONTINUE POC.
--- NOTE | 2019-09-09 17:18 | NUR ---
NO ACUTE CHANGES THROUGHOUT SHIFT, PT TURNED SELF THROUGHOUT SHIFT, NO REDNESS OR BREAKDOWN NOTED ANYWHERE. PT HAD NO C/O PAIN OR SHORTNESS OF BREATH, MEDS PER MAR, HOURLY ROUNDING OBSERVED, FALL PRECAUTIONS IN PLACE, CALL LIGHT W/IN REACH, WILL CONTINUE POC.
[2019-09-10] VITALS: BP 160/61
--- NOTE | 2019-09-10 04:34 | NUR ---
No acute event this shift. Pt denies pain. Sleep most of the night. Fall precaution, hourly rounding, call light within reach, will continue to monitor.
[2019-09-10 04:59] LABS: CALCIUM 7.2 mg/dL (8.5-10.1); CREATININE 1.7 mg/dL (0.6-1.3); MAGNESIUM 1.6 mg/dL (1.8-2.4); POTASSIUM 4.1 mmol/L (3.5-5.1)
[2019-09-10 08:16] VITALS: BP 176/75
--- NOTE | 2019-09-10 10:13 | NUR ---
ASSUMED PT CARE AT 0730, PT RESTING IN BED, AOX4 BUT FORGETFUL, TURNS SELF WELL, NO REDNESS OR SKIN BREAKDOWN NOTED, PT STILL EDEMATOUS TO BILAT LE'S. PT HAS NO C/O PAIN OR SHORTNESS OF BREATH. MAG NOTED TO BE LOW THIS MORNING, IV MAG CURRENTLY INFUSING. PT GOAL IS TO WORK W/ PT AND OT AND INCREASE ACTIVITY AND WORK ON PLACEMENT TO SNF. AM ASSESSMENT CHARTED, MEDS PER MAR, HOURLY ROUNDING OBSERVED, FALL PRECAUTIONS IN PLACE, CALL LIGHT W/IN REACH, WILL CONTINUE POC.
[2019-09-10 16:00] VITALS: BP 184/72
--- NOTE | 2019-09-10 17:54 | NUR ---
PT TRANSFERRED TO [facility] TO CONTINUE CARE FOR THE REST OF HER STAY HERE. PT NOTIFIED AND VERY AGREEABLE TO MOVING UNTIL PLACEMENT IS FOUND FOR HER. PT TRANSFERRED W/ ALL BELONGINGS TO ROOM 113 IN [facility].
--- NOTE | 2019-09-10 18:20 | NUR ---
Pt AOx4 forgetful at times. Pt is up with SBA to BSC. transferred to unit from [facility] this afternoon. IV was not in place upon transfer, obtained order from [facility] to leave out. Pt tolerating diabetic diet. No c/o pain this shift. BP are still trending high, coreg given per MAR. Hourly rounding complete. Will continue to monitor.
[2019-09-10 20:00] VITALS: BP 185/78
--- NOTE | 2019-09-11 05:06 | NUR ---
PT SLEPT WELL OVERNIGHT. UP WITH ASSIST TO BSC TO VOID. NO IV ACCESS. PT HAS DENIED PAIN OR PROBLEMS THIS SHIFT. R GA ABRASION. HS ACCUCHECK 147, NO INSULIN ORDERS. BLE EDEMA. AOX4, FORGETFUL, ABLE TO USE CALL LITE AND MAKE NEEDS KNOWN. ANTICIPATING DC TO SNF TODAY. NO LABS THIS MORNING. PO ABX GIVEN ORDERED. DNR.
[2019-09-11 07:45] VITALS: BP 183/78
[2019-09-11] MEDS ORDERED: HYDROCHLOROTHIA25 M1 PO (08:30)
[2019-09-11] MEDS ORDERED: CEFUROXIME250 MG PO (08:30)
[2019-09-11] MEDS ORDERED: NORVASC5 M1 PO (08:31)
[2019-09-11 13:44] VITALS: BP 183/78
[2019-09-11 13:49] VITALS: BP 183/78
[2019-09-11 15:50] VITALS: BP 172/64
--- NOTE | 2019-09-11 16:00 | NUR ---
LEFT FOR SON,CLAUDETTE, TO DISCUSS POSSIBLE SHORT TERM SNF FOR PT. HE NEVER CALLED CM BACK. DISCUSSED WITH PT. SHE AT FIRST SAID NO SHE JUST WANTED TO GO HOME. CALLED SON ON PTS PHONE. HE ANSWERED. HE WAS NON COMMITAL. AT FIRST HE THOUGHT IT MIGHT BE A GOOD IDEA. HE SAID [facility] WOULD BE GOOD. THEN HE SPOKE WITH HIS MOM AND THEY DECIDED SHE WOULD GO HOME. CM SPOKE WITH PT FOR A LITTEL WHILE LONGER. SHE SAID IT MIGHT BE GOOD IF I DID GO SOMEWHERE TO GET STRONGER BEFORE I GO HOME. SHE SAID SEE IF [facility] CAN TAKE ME. FAXED REFERAL TO ADMISSIONS AT [facility] [phone].
--- NOTE | 2019-09-11 18:25 | NUR ---
Pt AOx4, forgetful. Pt is up with assist x1 to bsc. Pt is on heart healthy diet, no c/o pain this shift. BP continues to trend high, norvasc added to med list. Pt is waiting to be dc'd to snf pending placement. Will continue to monitor
[2019-09-11 19:45] VITALS: BP 162/64
[2019-09-12 03:33] VITALS: BP 177/72
--- NOTE | 2019-09-12 05:21 | NUR ---
PT SLEPT WELL THIS SHIFT, HAS DENIED PAIN OR PROBLEMS. UP WITH ASSIST TO BSC AND INCONTINENT EPISODE OVERNIGHT. BM THIS SHIFT. TAKING PILLS WHOLE WITH WATER WITHOUT DIFFICULTY. NO IV ACCESS. PT TURNED AND REPOSITIONED Q2 HOURS AND PRN SHE WOULD ALLOW FOR SKIN CARE AND COMFORT. CALL LITE IN EASY REACH, BED ALARM ON FOR SAFETY. CM FOLLOWING FOR DC TO SNF ANTICIPATED TODAY. NO LABS THIS MORNING. ABLE TO USE CALL LITE AND MAKE NEEDS KNOWN.DNR.
[2019-09-12 07:20] VITALS: BP 164/70
[2019-09-12 15:30] VITALS: BP 171/69
--- NOTE | 2019-09-12 17:16 | NUR ---
PT REMAINED ALERT AND ORIENTED. PT RESTING IN BED. PT DID NOT WANT TO GET UP TO CHAIR FOR MEALS. NOTED REDNESS AT GROIN, NYSTATIN POWDER ORDERED AND APPLIED. PT INCONTINENT. HOURLY CHECKS FOR SOILED CHUCKS. FALL RISK PRECAUTIONS IN PLACE. HOURLY ROUNDING COMPLETED. WILL CONTINUE TO MONITOR.
[2019-09-12 19:50] VITALS: BP 175/61
[2019-09-13 07:45] VITALS: BP 174/68
--- NOTE | 2019-09-13 12:00 | NUR ---
[place].Radha. FEELS PT.COULD GO HOME WITH HH AT DISCHARGE IF FAMILY WERE WITH PT.21/09. CM LEFT VM FOR SON,CLAUDETTE. HE PROMPTLY CALLED BACK. SAID SOMEONE IS ALWAYS AT HOME WITH PT. EITHER HIM, HIS 26 Y.O.SON OR HIS . TOLD HIM SHE IS WALKING ABOUT 75 FT.WITH SBA. HE IS AGREEABLE TO HER COMING HOME. HE SAID THEY USED HH BEFORE BUT COULD NOT REMEMBER NAME OF AGENCY. PT.INFORMED.
[2019-09-13 13:31] VITALS: BP 183/78
[2019-09-13 14:55] VITALS: BP 183/78
[2019-09-13 15:01] VITALS: BP 183/78
[2019-09-13 15:27] VITALS: BP 183/78
--- NOTE | 2019-09-13 15:28 | NUR ---
PT GIVEN DISCHARGE INFORMATION. PRESCRIPTIONS SENT TO PHARMACY. PT BELONGINGS GATHERED. PT LEFT VIA WHEELCHAIR WITH NURSING STAFF TO HOME WITH HOME HEALTH. FALL RISK PRECAUTIONS IN PLACE. HOURLY ROUNDING COMPLETED.
--- NOTE | 2019-09-13 15:56 | NUR ---
CM SPOKE TO THE PT'S SON TO DISCUSS DISCHARGRE PLANNING, AND HH AT D/C. PT'S SON REQUEST HH WITH [facility]. CM SPOKE TO INTAKE WITH [facility] TO INFORM OF THE HH REFERRAL AND FAXED REFERRAL AND D/C ORDERS. [facility] ACCEPTS PT FOR HH AND WILL CONTACT THE PTS SON TO ARRANGE TIME TO VISIT.
== END 2019-09-13 15:39 | disposition home health service (06) | DRG 871 ==
LOC: M.ERS 17:37 → M.ORTHSURG 18:52 → M.TBA-ER 18:52 → M.2W 18:52 → M.ORTHSURG 09-10 14:48
PROVIDERS: Family Medicine; Internal Medicine; ADMIT Family Medicine; ATTEND Family Medicine
DX: A41.9 Sepsis, unspecified organism (principal); G92 Toxic encephalopathy; I16.1 Hypertensive emergency; N18.4 Chronic kidney disease, stage 4 (severe); N30.91 Cystitis, unspecified with hematuria; Z91.14 Patient's other noncompliance with medication regimen; E11.22 Type 2 diabetes mellitus with diabetic chronic kidney disease; B96.1 Klebsiella pneumoniae [K. pneumoniae] as the cause of diseases classified elsewhere; B35.6 Tinea cruris; I12.9 Hypertensive chronic kidney disease with stage 1 through stage 4 chronic kidney disease, or unspecified chronic kidney disease; M10.9 Gout, unspecified; M81.0 Age-related osteoporosis without current pathological fracture; Z66 Do not resuscitate; Z20.828 Contact with and (suspected) exposure to other viral communicable diseases; Z79.899 Other long term (current) drug therapy

== ENCOUNTER 2019-11-08 05:44 | Inpatient (IN) | payer OTHER ==
[~2019-11-08] VITALS: Ht 165.1 cm; Wt 54.4 kg
--- NOTE | ~2019-11-08 | OP ---
[address] [address] OPERATIVE REPORT Name: GREGGMARYJEANA RODRIGUEZA DONAVAN Room: [address] IN [facility]#: [id number] Admission: 11/08/19 Attend Phys: Pari Zazueta MD Discharge: Date of : 32 Report #: [id number] THIS REPORT FOR: //name// cc: Alfredo Paz Mohammad K. DO ~ CC: Pari Paz DATE OF SERVICE: 11/09/2019 PREOPERATIVE DIAGNOSIS: Comminuted displaced right proximal humerus fracture. POSTOPERATIVE DIAGNOSIS: Comminuted displaced right proximal humerus fracture. PROCEDURE PERFORMED: Right reverse total shoulder arthroplasty with ORIF of the tuberosities using the Tornier Aequalis fracture system with the following components: 1. A 25 mm threaded baseplate, 30 mm post. 2. A 36 mm centered glenosphere. 3. A size 11 humeral stem. 4. A +9 retentive ultra high molecular weight polyethylene component. SURGEON: Jluis Platt DO FOOD SAFETY FIELD SPECIALIST: ANESTHESIA: General with nerve block by Anesthesia. ESTIMATED BLOOD LOSS: 100 mL. SPECIMENS: None. COMPLICATIONS: None. DISPOSITION: Stable to PACU. ANTIBIOTICS: 2 grams IV Ancef preop. INDICATIONS: The patient is an 89-year-old female, who presented to the Emergency Department after sustaining a ground level fall. She had immediate shoulder pain. X-rays demonstrate a completely displaced comminuted proximal humerus fracture with involvement of both tuberosities and surgical neck. Due to the nature of the displacement, it was not believed that this fracture would heal with conservative measures. It is therefore discussed with the patient surgical fixation. She understood the risks, benefits and alternatives and [place] [address] OPERATIVE REPORT Name: CAPRICE BERGER Room: [address] IN [facility]#: [id number] Admission: 11/08/19 Attend Phys: Pari Zazueta MD Discharge: Date of : 32 Report #: [id number] DESCRIPTION OF PROCEDURE: The patient was seen in the preoperative area. Written consent was obtained. The operative site was marked. She was brought back to the operative suite, given the benefit of general anesthesia. She was placed in the beach chair position utilizing the T-Max table. Right upper extremity was prepped and draped in normal sterile fashion. Surgical timeout performed, correct site, side, and procedure were verified. Everyone present was in agreement. Procedure began with creation of an incision for a standard deltopectoral approach. Sharp dissection through skin. Bovie down to the fat. We identified the interval between the deltoid and the pectoralis major. There was no cephalic vein identified. We placed the appropriate retractors. We identified the fracture site and a large hematoma was encountered. We localized the lesser tuberosity with the subscapularis attached to it. A stay suture was placed through this and the subscap was released through the rotator interval. Next, removed the humeral head. I placed a traction suture through the posterior superior cuff to mobilize the greater tuberosity. We then placed the appropriate retractors around the glenoid and had excellent visualization. The labrum and capsular tissue was removed. The guide was used to pin the place in the appropriate inferior position on the glenoid. We then sequentially reamed to the appropriate size. We drilled for the center post, which measured 30. The glenoid baseplate was inserted and had good purchase. We then drilled our superior and inferior screws. They were measured and the appropriate length locking screw was inserted. The glenosphere was then engaged into the baseplate and malleted and again the screw was engaged appropriately. We returned our attention to the humerus. We sequentially reamed. We reamed up to a size 11. We noted approximately 30 degrees of retroversion. The height was noted. The trial poly was inserted. Humerus was reduced. Shoulder was taken through range of motion. Excellent stability and good tension noted on the conjoined tendon. At this point, we were ready for final implantation of our humeral stem. Prior to this, we passed 4 sutures through the posterior superior cuff where we placed four #5 sutures through the posterior superior cuff. Two of these were then looped around through the subscapularis tendon and 2 were passed through the final implant, which was constructed on the back table. We then drilled two drill holes through the proximal humerus and again passed a #5 suture through these. At this point, we were ready for cementation of our humeral stem. Cement was mixed and the component was inserted, noting the appropriate retroversion of approximately 30 degrees and height similar to our trial components. We allowed appropriate time for the cement to harden. We trialed polys. The +9 mm poly gave excellent stability. The appropriate tension on the soft tissue surrounding. We impacted the final poly into place. The shoulder was taken through range of motion. It had excellent stability with no laxity. Appropriate tension on the conjoined tendon. We then first tied our sutures passed through the implant to the posterior limb on the posterosuperior cuff. We then completed and tied the sutures that went around the world again giving good reduction of our greater and lesser tuberosity. We then used the sutures through the drill hole and ran vertically through the soft tissue and bony [facility] [address] [place] [address] OPERATIVE REPORT Name: CAPRICE BERGER DONAVAN Room: [address] IN M.R.#: [id number] Admission: 11/08/19 Attend Phys: Pari Zazueta MD Discharge: Date of : 32 Report #: [id number] structures. Each limb was tied to itself. We had excellent reduction of the soft tissues as well as bony tuberosities around the implant. Shoulder was again taken through range of motion with excellent stability and good range of motion. The wound was thoroughly irrigated. The interval tissue was closed with a running #1 Vicryl. The subcutaneous tissue was then closed with 2-0 Vicryl simple inverted interrupted fashion. Skin was reapproximated with a running 3-0 nylon suture. Soft dressings were applied including Xeroform, 4 x 4's, ABD and Medipore tape. The patient was awoken from anesthesia and transferred to PACU in stable condition. There was no ____ complications. Needle and sponge counts correct x 2. Dr. Platt was present for all critical aspects of the case. By: [id number] Platt, DO /nt
[~2019-11-08 05:44] MED LIST changes: +CEFUROXIME250 MG PO; +FOSAMAX 70 MG T70 MG PO; +HYDROCHLOROTHIA25 M1 PO; +NORVASC5 M1 PO
[2019-11-08 06:00] VITALS: BP 192/83
[2019-11-08 07:23] LABS: ABSOLUTE BASOPHILS 0.1 thou/uL (0.0-0.2); ABSOLUTE EOSINOPHILS 0.3 thou/uL (0.0-0.7); ABSOLUTE LYMPHOCYTES 1.2 thou/uL (0.8-5.3); ABSOLUTE MONOCYTES 0.4 thou/uL (0.0-1.2); ABSOLUTE NEUTROPHILS 10.9 thou/uL (1.6-8.1); BASOPHILS 0.7 %; HEMATOCRIT 27.5 % (37.0-47.0); HEMOGLOBIN 9.4 gm/dL (12.0-15.0); LYMPHOCYTES 9.2 %; MCH 29.2 pg (26.0-34.0); MCHC 34.2 g/dL (28.0-37.0); MCV 85.4 fL (80.0-100.0); MONOCYTES 3.3 %; NUCLEATED RBCS 0 /100WBC; PLATELET COUNT* 174 thou/uL (150-400); POLYS 84.8 %; RBC 3.23 mil/uL (4.20-5.00); RDW-CV 14.5 % (10.5-14.5); WBC 12.8 thou/uL (4.0-11.0)
[2019-11-08 07:31] LABS: CALCIUM 8.3 mg/dL (8.5-10.1); CREATININE 2.1 mg/dL (0.6-1.3)
[2019-11-08 07:34] LABS: APTT 27.1 Seconds (25.0-31.3); INR 1.2
[2019-11-08 09:38] VITALS: BP 177/87
[2019-11-08 10:27] VITALS: BP 170/82
--- NOTE | 2019-11-08 13:41 | EKG ---
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1930 Requested By: Ana Garay Order Number: [id number] MD: Jesus Lai Measurements Intervals [place] Rate: 71 P: -36 TX: 112 QRS: -15 QRSD: 98 T: 48 QT: 418 QTc: 455 Interpretive Statements Sinus rhythm prolonged [place] interval Left ventricular hypertrophy Inferior infarct, old Baseline wander in lead(s) II,III,aVF Compared to ECG 09/07/2019 17:48:44 Left ventricular hypertrophy now present Sinus tachycardia no longer present Atrial premature complex(es) no longer present Myocardial infarct finding still present Electronically Signed On 11-08-2019 13:41:11 CDT by Jesus Lai [email or web address] <ELECTRONICALLY SIGNED> By: Jesus Lai MD, [facility] 11/08/19 1341 0637 0637 Jesus Lai MD, [facility] /EPI
[2019-11-08 16:00] VITALS: BP 141/75
[2019-11-08 19:58] VITALS: BP 147/75
[2019-11-09 05:14] LABS: ABSOLUTE EOSINOPHILS 0.1 thou/uL (0.0-0.7); ABSOLUTE LYMPHOCYTES 1.4 thou/uL (0.8-5.3); ABSOLUTE MONOCYTES 0.4 thou/uL (0.0-1.2); BASOPHILS 0.2 %; EOSINOPHILS 0.6 %; HEMATOCRIT 20.4 % (37.0-47.0); LYMPHOCYTES 15.6 %; MCH 29.6 pg (26.0-34.0); MCHC 34.9 g/dL (28.0-37.0); MONOCYTES 4.9 %; MPV 8.3 fl. (7.2-11.1); NUCLEATED RBCS 0 /100WBC; PLATELET COUNT* 152 thou/uL (150-400); POLYS 78.7 %; RDW-CV 14.8 % (10.5-14.5); WBC 8.9 thou/uL (4.0-11.0)
[2019-11-09 05:18] LABS: HEMOGLOBIN 7.1 gm/dL (12.0-15.0)
[2019-11-09 05:22] LABS: CALCIUM 7.8 mg/dL (8.5-10.1); CREATININE 2.6 mg/dL (0.6-1.3)
[2019-11-09 07:40] VITALS: BP 144/61; BP 147/75
[2019-11-09 08:04] VITALS: BP 155/60; BP 155/66; BP 156/70; BP 168/68
[2019-11-09 14:09] LABS: HEMATOCRIT 30.9 % (37.0-47.0)
[2019-11-09 14:10] LABS: HEMOGLOBIN 10.9 gm/dL (12.0-15.0)
[2019-11-09 16:59] VITALS: BP 134/65; BP 136/52; BP 139/68; BP 141/69
[2019-11-09 20:39] VITALS: BP 163/71
[2019-11-10] VITALS: BP 156/66
[2019-11-10 03:52] LABS: HEMATOCRIT 28.8 % (37.0-47.0); HEMOGLOBIN 10.1 gm/dL (12.0-15.0)
[2019-11-10 04:00] VITALS: BP 180/75
[2019-11-10 07:05] VITALS: BP 179/69
[2019-11-10 08:33] VITALS: BP 179/69
[2019-11-10 08:54] VITALS: BP 179/69
[2019-11-10] MEDS ORDERED: ELIQUIS2.5 MG PO (08:58)
[2019-11-10] MEDS ORDERED: NORCO 5-325 TA1 EAC2 PO (12:25)
[2019-11-10 15:02] VITALS: BP 179/69
== END 2019-11-10 15:11 | disposition home or self-care (01) | DRG 483 ==
LOC: M.ERS 05:44 → M.TBA-ER 07:47 → M.ORTHSURG 07:47
PROVIDERS: Emergency Medicine; Internal Medicine; Orthopaedic Surgery; Personal Emergency Response Attendant; ADMIT Internal Medicine; ATTEND Internal Medicine
PROC: 30233N1 Transfusion of Nonautologous Red Blood Cells into Peripheral Vein, Percutaneous Approach (ICD-10-PCS; principal; 2019-11-09)
PROC: 0RRJ00Z Replacement of Right Shoulder Joint with Reverse Ball and Socket Synthetic Substitute, Open Approach (ICD-10-PCS; principal; 2019-11-09)
PROC: 0PSF04Z Reposition Right Humeral Shaft with Internal Fixation Device, Open Approach (ICD-10-PCS; principal; 2019-11-09)
DX: M80.021A Age-related osteoporosis with current pathological fracture, right humerus, initial encounter for fracture (principal); N17.0 Acute kidney failure with tubular necrosis; M25.00 Hemarthrosis, unspecified joint; E11.22 Type 2 diabetes mellitus with diabetic chronic kidney disease; I12.9 Hypertensive chronic kidney disease with stage 1 through stage 4 chronic kidney disease, or unspecified chronic kidney disease; E11.9 Type 2 diabetes mellitus without complications; M1A.9XX0 Chronic gout, unspecified, without tophus (tophi); N18.9 Chronic kidney disease, unspecified; Z79.899 Other long term (current) drug therapy

== ENCOUNTER 2019-12-02 22:35 | Inpatient (IN) | payer OTHER ==
[~2019-12-02] VITALS: Ht 165.1 cm; Wt 55.8 kg
[~2019-12-02 22:35] MED LIST changes: +ELIQUIS2.5 MG PO; +NORCO 5-325 TA1 EAC2 PO
[2019-12-02 22:36] VITALS: BP 189/72
[2019-12-03 01:22] LABS: CALCIUM 8.6 mg/dL (8.5-10.1); CREATININE 2.6 mg/dL (0.6-1.3); POTASSIUM 3.4 mmol/L (3.5-5.1)
[2019-12-03 01:26] LABS: MAGNESIUM 1.7 mg/dL (1.8-2.4); TOTAL BILIRUBIN 0.6 mg/dL (<0.1-1.0); TOTAL PROTEIN 7.2 g/dL (6.4-8.2)
[2019-12-03 02:32] LABS: ABSOLUTE EOSINOPHILS 0.1 thou/uL (0.0-0.7); ABSOLUTE LYMPHOCYTES 0.7 thou/uL (0.8-5.3); ABSOLUTE MONOCYTES 0.4 thou/uL (0.0-1.2); ABSOLUTE NEUTROPHILS 7.5 thou/uL (1.6-8.1); BASOPHILS 0.3 %; EOSINOPHILS 0.9 %; HEMATOCRIT 22.7 % (37.0-47.0); HEMOGLOBIN 7.7 gm/dL (12.0-15.0); LYMPHOCYTES 7.7 %; MCHC 33.9 g/dL (28.0-37.0); MCV 85.5 fL (80.0-100.0); MONOCYTES 4.9 %; MPV 7.9 fl. (7.2-11.1); NUCLEATED RBCS 0 /100WBC; PLATELET COUNT* 233 thou/uL (150-400); POLYS 86.2 %; RBC 2.65 mil/uL (4.20-5.00); RDW-CV 14.3 % (10.5-14.5); WBC 8.6 thou/uL (4.0-11.0)
[2019-12-03 02:40] VITALS: BP 147/54
[2019-12-03 03:00] VITALS: BP 140/61
[2019-12-03 08:15] VITALS: BP 144/57; BP 186/67
--- NOTE | 2019-12-03 12:17 | EKG ---
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[place] : 1930 Requested By: Ana Garay Order Number: [id number] MD: Jesus Lai Measurements Intervals [place] Rate: 69 P: -4 DC: 77 QRS: -8 QRSD: 104 T: 6 QT: 404 QTc: 433 Interpretive Statements Sinus rhythm Short DC interval Left ventricular hypertrophy Inferior infarct, old consider anterior infarction, old Compared to ECG 11/08/2019 06:37:47 Short DC interval now present Myocardial infarct finding still present Electronically Signed On 12-03-2019 12:17:14 CDT by Jesus Lai [email or web address] <ELECTRONICALLY SIGNED> By: Jesus Lai MD, FACC 12/03/19 1217 2 2 Jesus Lai MD, FACC /EPI
[2019-12-03 16:06] LABS: CALCIUM 8.4 mg/dL (8.5-10.1); CREATININE 2.1 mg/dL (0.6-1.3); MAGNESIUM 1.9 mg/dL (1.8-2.4); POTASSIUM 4.2 mmol/L (3.5-5.1)
[2019-12-03 19:41] VITALS: BP 137/76
[2019-12-04 00:15] VITALS: BP 134/50
[2019-12-04 05:03] LABS: ABSOLUTE EOSINOPHILS 0.1 thou/uL (0.0-0.7); ABSOLUTE LYMPHOCYTES 0.7 thou/uL (0.8-5.3); ABSOLUTE MONOCYTES 0.3 thou/uL (0.0-1.2); ABSOLUTE NEUTROPHILS 4.6 thou/uL (1.6-8.1); BASOPHILS 0.3 %; EOSINOPHILS 0.9 %; LYMPHOCYTES 12.1 %; MCH 28.7 pg (26.0-34.0); MCHC 33.7 g/dL (28.0-37.0); MCV 85.3 fL (80.0-100.0); MONOCYTES 5.6 %; MPV 7.9 fl. (7.2-11.1); NUCLEATED RBCS 0 /100WBC; PLATELET COUNT* 184 thou/uL (150-400); POLYS 81.1 %; RBC 2.34 mil/uL (4.20-5.00); RDW-CV 14.4 % (10.5-14.5); WBC 5.7 thou/uL (4.0-11.0)
[2019-12-04 05:28] LABS: CALCIUM 8.1 mg/dL (8.5-10.1); CREATININE 1.9 mg/dL (0.6-1.3); POTASSIUM 4.2 mmol/L (3.5-5.1)
[2019-12-04 06:01] LABS: HEMOGLOBIN 6.7 gm/dL (12.0-15.0)
[2019-12-04 07:35] VITALS: BP 112/64
[2019-12-04 10:07] VITALS: BP 126/44; BP 136/43; BP 151/56; BP 169/75; BP 182/85
[2019-12-04 13:48] LABS: URINE BILIRUBIN NEGATIVE (Negative); URINE BLOOD NEGATIVE (Negative); URINE COLOR YELLOW; URINE GLUCOSE-RANDOM NEGATIVE (Negative); URINE KETONES NEGATIVE (Negative); URINE LEUKOCYTES NEGATIVE (Negative); URINE NITRITE NEGATIVE (Negative); URINE PROTEIN 2+ (Negative); URINE UROBILINOGEN 0.2 E.U./dl (0.2-1.0)
[2019-12-04 13:49] LABS: URINE CLARITY CLOUDY
[2019-12-04 13:53] LABS: SQUAMOUS 0-3 Few /LPF (0-3)
[2019-12-04 13:55] LABS: BACTERIA None Seen /HPF (None Seen); RENAL EPITHELIAL CELLS 0-3 Few /LPF (None Seen); URINE RBC 0-2 Rare /HPF (0-2); URINE WBC None Seen /HPF (0-5)
[2019-12-04 13:56] LABS: AMORPHOUS URATES Few /LPF (None Seen); FINE GRANULAR CASTS 0-3 Few /LPF (None Seen)
[2019-12-04 16:00] VITALS: BP 196/84
[2019-12-04 20:49] VITALS: BP 196/76
[2019-12-04 21:05] LABS: IgA 615 mg/dL (64-422); IgG 1562 mg/dL (586-1602); IgM 51 mg/dL (26-217)
[2019-12-05 07:10] VITALS: BP 172/64
[2019-12-05 09:33] LABS: ABSOLUTE EOSINOPHILS 0.1 thou/uL (0.0-0.7); ABSOLUTE LYMPHOCYTES 0.9 thou/uL (0.8-5.3); ABSOLUTE MONOCYTES 0.6 thou/uL (0.0-1.2); ABSOLUTE NEUTROPHILS 7.7 thou/uL (1.6-8.1); BASOPHILS 0.3 %; EOSINOPHILS 0.8 %; HEMATOCRIT 28.6 % (37.0-47.0); HEMOGLOBIN 9.8 gm/dL (12.0-15.0); LYMPHOCYTES 9.4 %; MCH 28.5 pg (26.0-34.0); MCV 83.6 fL (80.0-100.0); MONOCYTES 6.2 %; MPV 7.6 fl. (7.2-11.1); NUCLEATED RBCS 0 /100WBC; PLATELET COUNT* 224 thou/uL (150-400); POLYS 83.3 %; RBC 3.43 mil/uL (4.20-5.00); RDW-CV 15.7 % (10.5-14.5); WBC 9.2 thou/uL (4.0-11.0)
[2019-12-05 09:50] LABS: CALCIUM 8.2 mg/dL (8.5-10.1); CREATININE 1.8 mg/dL (0.6-1.3); POTASSIUM 3.8 mmol/L (3.5-5.1)
[2019-12-05 16:13] VITALS: BP 140/56
[2019-12-05 17:06] LABS: KAPPA FREE LIGHT CHAINS 227.9 mg/L (3.3-19.4); LAMBDA FREE LIGHT CHAINS 166.5 mg/L (5.7-26.3)
[2019-12-05 23:30] VITALS: BP 150/76
[2019-12-06 05:10] LABS: HEMATOCRIT 24.8 % (37.0-47.0); HEMOGLOBIN 8.6 gm/dL (12.0-15.0); MCH 28.8 pg (26.0-34.0); MCHC 34.5 g/dL (28.0-37.0); MCV 83.5 fL (80.0-100.0); MPV 7.6 fl. (7.2-11.1); RBC 2.98 mil/uL (4.20-5.00); RDW-CV 15.3 % (10.5-14.5); WBC 7.5 thou/uL (4.0-11.0)
[2019-12-06 05:12] LABS: CALCIUM 8.5 mg/dL (8.5-10.1); CREATININE 1.7 mg/dL (0.6-1.3); POTASSIUM 3.6 mmol/L (3.5-5.1)
[2019-12-06 07:50] VITALS: BP 158/59
[2019-12-06] MEDS ORDERED: PROCARDIA XL30 MG PO (09:27)
[2019-12-06] MEDS ORDERED: CEFDINIR300 MG PO (09:28)
--- NOTE | 2019-12-06 09:54 | CON ---
[address] [address] CONSULTATION Name: CAPRICE BERGER Room: [address] IN .R.#: [id number] Admission: 12/03/19 Attend Phys: Gordo Keene, Discharge: Date of : 34 Report #: [id number] THIS REPORT FOR: //name// cc: Alfredo Paz Mohammad K. DO ~ THIS REPORT FOR: //name// CC: Alfredo Keene DATE OF SERVICE: 12/03/2019 NEPHROLOGY CONSULTATION CONSULTING PHYSICIAN: Dr. Keene. REASON FOR NEPHROLOGY CONSULTATION: Acute on chronic kidney disease versus chronic kidney disease. REASON FOR ADMISSION: Fall in the shower. HISTORY OF PRESENT ILLNESS: This is an 89-year-old female, who was admitted this morning because she had a fall from her shower chair and fell backwards onto the carpet. She was just recently discharged on 11/09. She was admitted on 11/07 with a fall and right humerus fracture and underwent ORIF. At that time, her admission creatinine was 2.1 and her discharge creatinine was 2.6. She presents with a creatinine of 2.6 and hence Nephrology was consulted. She does take hydrochlorothiazide at home. She looks very dry. She was very sleepy on the interview, but able to wake up and answer some questions, but falls right back to sleep. Her hemoglobin has dropped from 10.1 at the time of discharge on 11/08 to 7.7 at this point. She does not report using any NSAIDs at home. Abdominal CT scan done, which did not show any hydronephrosis. She does have a new cough and she does have evidence of left lung pneumonia. ALLERGIES: No known drug allergies. REVIEW OF SYSTEMS: As mentioned in the history of present illness, otherwise 10-point review of systems are negative. PAST MEDICAL AND SURGICAL HISTORY: Includes hypertension, anemia, chronic gout, edema, osteoporosis, diabetes type 2 and recent ORIF for right humerus neck fracture. This was done on 11/07. HOME MEDICATIONS: Include multivitamin, cholecalciferol, hydrochlorothiazide 25 mg a day, amlodipine, carvedilol, folic acid, alendronate, apixaban, hydrocodone, [place] [address] CONSULTATION Name: GREGGJORDONJEANAA DONAVAN Room: [address]#: [id number] Admission: 12/03/19 Attend Phys: Gordo Keene, Discharge: Date of : 34 Report #: [id number] FAMILY HISTORY: Noncontributory in this 89-year-old female. SOCIAL HISTORY: She lives at home. Does not smoke or take alcohol or use illicit drugs. PHYSICAL EXAMINATION: VITAL SIGNS: Blood pressure is 140/61, temperature 36.6, pulse rate is 71, respiratory rate is 18, pulse ox 94% on room air. GENERAL: She is very drowsy, very sleepy right now, but she was arousable for a brief moment and did know what year this is and where she is. HEAD AND EYES: Atraumatic and normocephalic. Conjunctivae normal. EARS, NOSE, AND THROAT: Normal ears and nose. Mucous membranes are very dry. NECK: There is no JVD. CHEST: Shows diminished breath sounds anteriorly. CARDIOVASCULAR: S1, S2 normal. No murmurs or rubs. ABDOMEN: Soft, nondistended, nontender. Bowel sounds are present. EXTREMITIES: Lower extremities, there is no lower extremity edema. SKIN: Extremely dry and skin turgor is decreased. NEUROLOGICAL FUNCTION: He is very sleepy right now, but able to wake up. PSYCHIATRIC: Difficult to assess right now. LABORATORY DATA: WBC is 8.6, hemoglobin is 7.7. Sodium is 137, potassium is 3.4, BUN is 63, creatinine is 2.6, CO2 is 24. Other labs were reviewed. IMAGING: Abdominal pelvic CT scan and chest x-ray were reviewed. ASSESSMENT: 1. Acute kidney injury on chronic kidney disease stage 4. Her baseline creatinine seems to be in the range of 1.7 to 2.0 and the patient presents with a creatinine of 2.6. Apparently, her creatinine was the same 2.6 on 11/08, but at that time, it had worsened from 2.1 a day prior to that. At that time, she was admitted for right humerus fracture, underwent ORIF. Presents today with a fall so we need to check a CPK. She does feel extremely dry and she is taking hydrochlorothiazide at home. I think all this is contributing to acute kidney injury at this point. There is no hydronephrosis on the abdominal CT scan. A UA will be checked. 2. Mild hypokalemia, likely because of hydrochlorothiazide use. 3. Drop in hemoglobin from her normal range of 10.1 on 11/08 to 7.7. This needs to be investigated. We will defer to primary team. I did order a fecal occult blood. 4. Hypertension. Blood pressure seems to be controlled at this point. 5. Diabetes type 2. We will defer to primary team for management of that. 6. Left lung pneumonia. Primary team will treat with antibiotics accordingly. PLAN: [place] [address] CONSULTATION Name: CAPRICE BERGER DONAVAN Room: [address] IN M.R.#: [id number] Admission: 12/03/19 Attend Phys: Gordo Keene, Discharge: Date of : 34 Report #: [id number] 1. Antibiotics for pneumonia as per primary team. 2. I will replace her potassium. 3. Please avoid all NSAIDs. 4. I am giving her IV fluids, normal saline at 80 mL an hour. 5. We will check a serum immunofixation, serum free light chain ratio as well. 6. Keep hydrochlorothiazide on hold and no nephrotoxic agents. 7. We will check a CPK level. UA as well. 8. Checking a stool for fecal occult blood, but further management of her acute drop in hemoglobin as per primary team. 9. Check a bladder scan to make sure she is not retaining any urine. Thank you for this consultation. We will continue to follow with you. Discussed with the patient's nurse in detail. <ELECTRONICALLY SIGNED> By: Ghazal Gibbons MD 12/06/19 0954 [id number] Gibbons MD /nt
[2019-12-06] MEDS ORDERED: COREG6.25 MG PO (11:23)
[2019-12-06 13:26] VITALS: BP 158/59
[2019-12-06 13:43] VITALS: BP 158/59
[2019-12-06 14:54] VITALS: BP 158/59
[2019-12-06 16:14] VITALS: BP 158/59
== END 2019-12-06 16:25 | disposition home health service (06) | DRG 166 ==
LOC: M.ERS 22:35 → M.3W 12-03 01:59 → M.TBA-ER 12-03 01:59 → M.3W 12-03 02:46
PROVIDERS: Emergency Medicine; Internal Medicine; Surgery; ADMIT Family Medicine; ATTEND Family Medicine
PROC: 0JB70ZZ Excision of Back Subcutaneous Tissue and Fascia, Open Approach (ICD-10-PCS; principal; 2019-12-06)
DX: J15.6 Pneumonia due to other Gram-negative bacteria (principal); G93.41 Metabolic encephalopathy; L89.153 Pressure ulcer of sacral region, stage 3; E43 Unspecified severe protein-calorie malnutrition; N18.4 Chronic kidney disease, stage 4 (severe); M10.9 Gout, unspecified; M81.0 Age-related osteoporosis without current pathological fracture; I12.9 Hypertensive chronic kidney disease with stage 1 through stage 4 chronic kidney disease, or unspecified chronic kidney disease; K59.00 Constipation, unspecified; K74.60 Unspecified cirrhosis of liver; F03.90 Unspecified dementia, unspecified severity, without behavioral disturbance, psychotic disturbance, mood disturbance, and anxiety; E11.22 Type 2 diabetes mellitus with diabetic chronic kidney disease; E87.6 Hypokalemia; E11.65 Type 2 diabetes mellitus with hyperglycemia; D64.9 Anemia, unspecified; E83.42 Hypomagnesemia; Z20.828 Contact with and (suspected) exposure to other viral communicable diseases; Z68.20 Body mass index [BMI] 20.0-20.9, adult; Z79.01 Long term (current) use of anticoagulants; Z79.899 Other long term (current) drug therapy

== ENCOUNTER → 2019-12-13 | Outpatient (CLI) | payer OTHER ==
[~2019-12-13] MED LIST changes: +PROCARDIA XL30 MG PO
== END ==
LOC: M.WC 08:00
PROVIDERS: ATTEND Surgery
DX: E11.622 Type 2 diabetes mellitus with other skin ulcer (principal); L89.153 Pressure ulcer of sacral region, stage 3; L98.496 Non-pressure chronic ulcer of skin of other sites with bone involvement without evidence of necrosis; E44.0 Moderate protein-calorie malnutrition; I11.0 Hypertensive heart disease with heart failure; I50.9 Heart failure, unspecified; M81.0 Age-related osteoporosis without current pathological fracture; M10.9 Gout, unspecified; Z96.649 Presence of unspecified artificial hip joint

== ENCOUNTER 2019-12-14 15:26 | Inpatient (IN) | payer OTHER ==
[~2019-12-14] VITALS: Ht 165.1 cm; Wt 49.7 kg
[2019-12-14 15:41] VITALS: BP 109/54
[2019-12-14 16:34] LABS: HEMOGLOBIN 9.7 gm/dL (12.0-15.0); MCH 27.1 pg (26.0-34.0); MCHC 32.3 g/dL (28.0-37.0); MCV 83.9 fL (80.0-100.0); MPV 7.9 fl. (7.2-11.1); NUCLEATED RBCS 0 /100WBC; PLATELET COUNT* 250 thou/uL (150-400); RBC 3.58 mil/uL (4.20-5.00); RDW-CV 15.4 % (10.5-14.5); WBC 24.6 thou/uL (4.0-11.0)
[2019-12-14 16:40] LABS: CALCIUM 9.1 mg/dL (8.5-10.1); CREATININE 2.8 mg/dL (0.6-1.3); POTASSIUM 4.1 mmol/L (3.5-5.1)
[2019-12-14 16:52] LABS: ALBUMIN 1.9 g/dL (3.4-5.0); TOTAL BILIRUBIN 0.5 mg/dL (<0.1-1.0)
[2019-12-14 17:23] LABS: ABSOLUTE MONOCYTES 0.5 thou/uL (0.0-1.2); ABSOLUTE NEUTROPHILS 22.1 thou/uL (1.6-8.1)
[2019-12-14 17:25] LABS: ANISOCYTOSIS 1+
[2019-12-14 17:26] LABS: PLATELET ESTIMATE ADEQUATE
[2019-12-14 20:33] VITALS: BP 111/53
[2019-12-15] VITALS: BP 111/43
[2019-12-15 04:00] VITALS: BP 121/49
[2019-12-15 08:13] VITALS: BP 106/39
--- NOTE | 2019-12-15 11:15 | EKG ---
[place] [address] ELECTROCARDIOGRAM REPORT Name: CAPRICE BERGER Room: [address] ADM IN .R.#: [id number] Admission: 12/14/19 Attend Phys: Rui Carreon Discharge: Date of : 34 Date of Service: 12/14/19 1553 Report #: [id number] THIS REPORT FOR: //name// [facility] ED Test Date: 2019-12-14 Test Time: 15:53:14 Pat Name: CAPRICE BERGER Department: Room: [facility] Gender: F Skilled Nursing Case Manager: MY : 1930 Requested By: Yehuda Mercedes Order Number: [id number] MD: Jesus Lai Measurements Intervals [place] Rate: 75 P: 53 MO: 194 QRS: -7 QRSD: 99 T: 35 QT: 391 QTc: 437 Interpretive Statements Sinus rhythm artifact noted Atrial premature complex Inferior infarct, old Anterior infarct, old Compared to ECG 12/03/2019 01:03:51 Atrial premature complex(es) now present Left ventricular hypertrophy no longer present Myocardial infarct finding still present Electronically Signed On 12-15-2019 11:15:32 CDT by Jesus Lai [email or web address] <ELECTRONICALLY SIGNED> By: Jesus Lai MD, FACC 12/15/19 1115 1553 1553 Jesus Lai MD, FAC /EPI
[2019-12-15 12:05] VITALS: BP 119/46
[2019-12-15 12:26] LABS: CALCIUM 8.3 mg/dL (8.5-10.1); POTASSIUM 4.2 mmol/L (3.5-5.1)
[2019-12-15 12:29] LABS: MAGNESIUM 1.9 mg/dL (1.8-2.4); PHOSPHORUS* 3.7 mg/dL (2.5-4.9)
--- NOTE | 2019-12-15 13:59 | NUR ---
Pt is A&O. Resides at home with her son and DIL. Pt states that she is normally independent. Family completes IADLs. Pt uses a walker for mobility. Does not currently have home o2, Pt on 6L here, so will need to be tested prior to dc to determine home o2 needs. Pt is current with [facility] and plans to resume at dc. No hx of SNF. Wound Care to see. Following [facility] p:[phone] f:[phone]
--- NOTE | 2019-12-15 14:43 | NUR ---
WOUND NURSE: PATIENT SEEN TO ADDRESS UNSTAGEABLE PRESSURE INJURY TO SACRUM AND WHICH MEASURES APPROX 9.0 X 9.0 CM. CONTAINS BLACKENED AND [place]HTON ESCHAR MATERIAL IN THE WOUND BED. THERE IS A SMALL AMOUNT OF SEROUSANGUINOUS DRAINAGE IN THE WOUND BED. PERIWOUND AREA WITHOUT NOTED REDNESS, WARMTH, OR INDURATION. THERE IS FOUL ODOR ASSOCIATED WITH THIS WOUND. CLEANSED WITH SOAP AND WATER, RINSED, THEN PATTED DRY. APPLIED SKIN PREP TO INTACT PERIWOUND TISSUE. APPLIED IODOSORB GEL UNDER DRAWTEX TO WOUND BED, THEN COVERED WITH SACRAL BORDERED FOAM DRESSING. PATIENT IS NOT TEACHEABLE. LOW AIRLOSS MATTRESS ORDERED FOR PATIENT.
[2019-12-15 17:39] VITALS: BP 113/72
--- NOTE | 2019-12-15 20:41 | NUR ---
Pt drowsy, but oriented. Very weak, but answers questions appropriately. VSS, though DBP upper 30s-50s. Large sacral wound/ulcer, assessed & dressed per billiard table assembler. Low air loss bed ordered. IVF and antibiotics started late in shift. Will continue to monitor.
[2019-12-15 21:45] VITALS: BP 103/41
[2019-12-16] VITALS: BP 153/52
[2019-12-16 04:00] VITALS: BP 115/47
--- NOTE | 2019-12-16 04:18 | NUR ---
PATIENT HAS REMAINED ALERT TO CONVERSATION AND ORIENTED X 2-3. TURNED Q2H FOR WOUND CARE. SURGERY SAW PATIENT AND ASSESSED SACRAL WOUND EVENING HOURS. TOOK MEDICATION WHOLE WITH WATER WITHOUT DIFFICULTY. MOUTH CARE COMPLETED. REMAINS ON 6L/MIN HF CANNULA. SPOT O2 SAT 99%. LOOSE COUGH NOTED AT TIMES. UNABLE TO PRODUCE A SAMPLE FOR C/S, HOWEVER. INCONT OF URINE. SR ON THE MONITOR. VITAL SIGNS STABLE. LOW-AIR MATTRESS ON ORDER. CONTINUE TO MONITOR.
[2019-12-16 12:00] VITALS: BP 115/43
[2019-12-16 15:30] LABS: ABSOLUTE LYMPHOCYTES 0.7 thou/uL (0.8-5.3); ABSOLUTE MONOCYTES 0.3 thou/uL (0.0-1.2); ABSOLUTE NEUTROPHILS 11.3 thou/uL (1.6-8.1); BASOPHILS 0.1 %; EOSINOPHILS 0.1 %; HEMATOCRIT 23.8 % (37.0-47.0); LYMPHOCYTES 5.7 %; MCH 27.2 pg (26.0-34.0); MCHC 32.4 g/dL (28.0-37.0); MCV 83.8 fL (80.0-100.0); MONOCYTES 2.5 %; MPV 7.3 fl. (7.2-11.1); NUCLEATED RBCS 0 /100WBC; PLATELET COUNT* 184 thou/uL (150-400); POLYS 91.6 %; RBC 2.83 mil/uL (4.20-5.00); RDW-CV 15.9 % (10.5-14.5); WBC 12.3 thou/uL (4.0-11.0)
[2019-12-16 15:31] LABS: HEMOGLOBIN 7.7 gm/dL (12.0-15.0)
[2019-12-16 15:51] LABS: ALBUMIN 1.4 g/dL (3.4-5.0); ALKALINE PHOSPHATASE 99 U/L (46-116); ANION GAP 9 mmol/L (7-16); BUN 56 mg/dL (7-18); CHLORIDE 106 mmol/L (98-107); CO2 22 mmol/L (21-32); CREATININE 3.1 mg/dL (0.6-1.3); GLUCOSE 159 mg/dL (70-99); NT-PRO BRAIN NAT PEPTIDE 21019 pg/mL (<300); SGOT 13 U/L (15-37); SGPT 7 U/L (30-65); SODIUM 137 mmol/L (136-145); TOTAL BILIRUBIN 0.3 mg/dL (<0.1-1.0); TOTAL PROTEIN 6.3 g/dL (6.4-8.2); TROPONIN-I LEVEL <0.06 ng/mL (<0.06)
[2019-12-16 16:00] VITALS: BP 135/54
[2019-12-16 16:47] LABS: ESR (SEDRATE) 110 mm/hr (0-30)
[2019-12-16 20:00] VITALS: BP 131/51
[2019-12-17] VITALS: BP 126/76
[2019-12-17 01:39] LABS: URINE BILIRUBIN NEGATIVE (Negative); URINE BLOOD NEGATIVE (Negative); URINE CLARITY CLEAR; URINE COLOR YELLOW; URINE GLUCOSE-RANDOM NEGATIVE (Negative); URINE KETONES NEGATIVE (Negative); URINE LEUKOCYTES-REFLEX NEGATIVE (Negative); URINE NITRITE-REFLEX NEGATIVE (Negative); URINE PROTEIN 1+ (Negative); URINE SPECIFIC GRAVITY 1.015 (1.005-1.030); URINE UROBILINOGEN 0.2 E.U./dl (0.2-1.0)
[2019-12-17 04:30] VITALS: BP 142/56
--- NOTE | 2019-12-17 04:42 | NUR ---
ASSUMED CARE OF PT AFTER REPORT AT 1930. PT A&OX3-4. FORGETFUL AT TIMES. VSS. PHYSICAL ASSESSMENT COMPLETED AND CHARTED. PT ON O2 AT 6L NC. PT TRACING SR ON TELE. PT DENIES PAIN. PT TURNED TO SIDES. PT WITH EPISODES OF INCONTINENT BOWEL & BLADDER. PT WITH SACRAL SORE AND NEW SORE ON LEFT BUTTOCK-CLEANED, PAT DRY AND COVERED WITH FOAM DRESSING. PHOTOGRAPH TAKEN. BILLY CATHETER INSERTED ORDERED. URINE SPECIMEN SENT TO LAB. FALL PRECAUTIONS IN PLACE. CALL LIGHT WITHIN REACH.
[2019-12-17 04:52] LABS: HEMATOCRIT 22.9 % (37.0-47.0); HEMOGLOBIN 7.7 gm/dL (12.0-15.0); MCH 28.2 pg (26.0-34.0); MCHC 33.5 g/dL (28.0-37.0); MCV 84.2 fL (80.0-100.0); MPV 7.6 fl. (7.2-11.1); RBC 2.72 mil/uL (4.20-5.00)
[2019-12-17 05:38] LABS: CALCIUM 8.2 mg/dL (8.5-10.1); CREATININE 2.8 mg/dL (0.6-1.3)
[2019-12-17 08:00] VITALS: BP 125/51
[2019-12-17 12:00] VITALS: BP 154/63
[2019-12-17 16:00] VITALS: BP 148/57
--- NOTE | 2019-12-17 18:47 | NUR ---
PATIENT RESTING IN BED. BEDREST. PATIENT AND SON HAVE EXPRESSED THE DESIRE TO BE PALLIATIVE CARE AT HOME TOMORROW. URIAH IS ALSO DNR. CASE MANAGEMENT TO ASSIST WITH PLANNNING FOR HOME PALLIATIVE CARE AND DME.
[2019-12-17 20:00] VITALS: BP 146/55
[2019-12-18] VITALS: BP 152/64
[2019-12-18 04:00] VITALS: BP 159/60
--- NOTE | 2019-12-18 06:44 | NUR ---
ASSUMED CARE OF PT AFTER REPORT AT 1930. PT A&OX3. FORGETFUL AT TIMES. VSS. PHYSICAL ASSESSMENT COMPLETED AND CHARTED. RT TITRATED DOWN O2 FROM 6L NC TO 3L NC. PT TRACING SR/PAC/PVC ON TELE. PT REFUSED TO TURNS AT TIMES EVEN AFTER EDUCATION-STAYED ON HER SIDES. PT WITH EPISODE OF INCONTINENT BOWEL. FALL PRECAUTIONS IN PLACE.
[2019-12-18 08:00] VITALS: BP 150/60
--- NOTE | 2019-12-18 13:09 | NUR ---
CM spoke with son on phone, confirmed plan for Pt to return home with him with hospice. Referral faxed to [facility]. Son making room for DME, DME to be delivered in the morning. Plan dc to home with [facility] tomorrow. SLAVA updated nurse and
--- NOTE | 2019-12-18 15:39 | NUR ---
WOUND NURSE: PATIENT SEEN FOR FOLLOW UP ASSESSMENT PERTAINING TO STAGE 4 PRESSURE INJURY TO SACRUM. PRESENTS WITH 50% BLACKENED ESCHAR AND 50% RED, NONGRANULATING TISSUE, THERE IS A MODERATE AMOUNT OF SEROUSANGUINOUS DRAINAGE. LESS ODOR NOTED WITH THE WOUND AT TIME OF THIS ASSESSMENT COMPARED TO PREVIOUS BY TIS NURSE. THERE REMAINS PURPLISH RED, NONBLANCHEABLE TISSUE TO THE PERIWOUND -- ESPECIALLY AT THE DISTAL END OF THE WOUND. WOUND CARE WAS PROVIDED PRESCRIBED. MEASURES 13.0 X 8.0 X 1.0 CM. PATIENT IS NOT TEACHEABLE. LOW AIRLOSS MATTRESS WAS ORDERED BUT PATIENT WAS NOT PLACED ON IT.
[2019-12-18 16:00] VITALS: BP 142/59
--- NOTE | 2019-12-18 18:55 | NUR ---
PATIENT RESTING IN BED. VITAL SIGNS STABLE. EXPECTED TO DISCHARGE TO HOME WITH HOPSICE TOMORROW.
[2019-12-18 20:00] VITALS: BP 159/62
[2019-12-18 23:45] VITALS: BP 164/63
[2019-12-19 04:00] VITALS: BP 159/56
--- NOTE | 2019-12-19 06:34 | NUR ---
ASSUMED CARE OF PT AFTER REPORT AT 1930. PT A&OX3. FORGETFUL AT TIMES. VSS. PHYSICAL ASSESSMENT COMPLETED AND CHARTED. PT ON O2 AT 1.5L NC. PT TRACING SR/PAC ON TELE. PT REFUSED TURNS AT TIMES. PT WITH BILLY TO DEPENDENT DRAIN. PT WITH EPISODES OF INCONTINENT BOWEL. FALL PRECAUTIONS IN PLACE.
[2019-12-19 07:50] VITALS: BP 159/59
--- NOTE | 2019-12-19 08:33 | NUR ---
ASSUMED CARE OF PT THIS AM AROUND 07- ASSISTANT PROFESSOR OF BIOLOGY IN PLACE ORDERED, TRACING SR WITH PAC- UPON ASSESSMENT PT NOTED TO BE RESTING IN BED- PT A&O X2-3 WITH NOTED FORGETFULLNESS- INCONT OF BOWEL, BILLY IN PLACE D/D CLEAR YELLOW URINE- BED REST IN PLACE WITH Q 2 HOUR TURNS INDICATED- LCTA, RESP EVEN AND UN-LABORED- VSS, O2 SAT 97% ON 1.5 L VIA NC- ABD SOFT/ROUND/NON-TENDER, BS X4 QUADS-LAST BM REPORTED ON PRIOR SHIFT- TRACE EDEMA NOTED TO UE AND LE- IV NOTED TO LEFT AC INTACT AND SL- ASSISTANCE REQUIRED WITH MEALS- DRESSINGS NOTED INTACT TO SACRAL AND LEFT BUTTOCKS WOUNDS- PT DENIES ANY C/O PAIN/DISCOMFORT AT THIS TIME- CALL LIGHT AND PERSONAL BELONGINGS WITH IN REACH- HOURLY ROUNDS IN PLACE R/T SAFETY/NEEDS- ALL NEEDS MET AT THIS TIME-WCTM
[2019-12-19 11:30] VITALS: BP 166/91
--- NOTE | 2019-12-19 12:31 | NUR ---
Pt discharging to home today with [facility]. Pt signed DNR, faxed to hospice. Ambulance to picked edge sewing machine operator and transport at 3pm. DME delivered to home this AM. Son aware of POC and is in agreement.
[2019-12-19 14:46] VITALS: BP 166/91
--- NOTE | 2019-12-19 15:49 | NUR ---
I have reviewed the documentation by LISA SHEIKH from 12/18/19 to 12/19/19 and I concur with it. KATY GALLAGHER
== END 2019-12-19 15:20 | disposition hospice, home (50) | DRG 871 ==
LOC: M.ERS 15:26 → M.TBA-ER 17:02 → M.2W 17:02
PROVIDERS: Emergency Medicine Emergency Medical Services; Internal Medicine; ADMIT Internal Medicine; ATTEND Internal Medicine
DX: A41.9 Sepsis, unspecified organism (principal); J15.6 Pneumonia due to other Gram-negative bacteria; N17.0 Acute kidney failure with tubular necrosis; J96.00 Acute respiratory failure, unspecified whether with hypoxia or hypercapnia; E43 Unspecified severe protein-calorie malnutrition; I50.31 Acute diastolic (congestive) heart failure; J69.0 Pneumonitis due to inhalation of food and vomit; G93.40 Encephalopathy, unspecified; I13.0 Hypertensive heart and chronic kidney disease with heart failure and stage 1 through stage 4 chronic kidney disease, or unspecified chronic kidney disease; Z20.828 Contact with and (suspected) exposure to other viral communicable diseases; M1A.9XX0 Chronic gout, unspecified, without tophus (tophi); M81.0 Age-related osteoporosis without current pathological fracture; J84.10 Pulmonary fibrosis, unspecified; D64.9 Anemia, unspecified; E11.22 Type 2 diabetes mellitus with diabetic chronic kidney disease; J84.89 Other specified interstitial pulmonary diseases; N18.9 Chronic kidney disease, unspecified; L89.150 Pressure ulcer of sacral region, unstageable; Z51.5 Encounter for palliative care; Z66 Do not resuscitate; Z87.81 Personal history of (healed) traumatic fracture; Z23 Encounter for immunization; Z79.899 Other long term (current) drug therapy